=== PATIENT | male | born 1950 | race Caucasian/White ===

== ENCOUNTER 2018-03-03 20:48 | Inpatient (IN) ==
[2018-03-03 21:20] LABS: Basophils % 0.5 %; Eosinophils # 0.1 K/mcL (0.0-0.6); Eosinophils % 2.3 %; Hematocrit 45.3 % (37.5-50.1); Hemoglobin 15.5 g/dL (12.9-16.9); Immature Granulocytes % 0.8 % (0-4); Lymphocytes # 1.5 K/mcL (0.6-4.6); Lymphocytes % 25.3 %; Mean Corpuscular HGB Conc 34.2 g/dL (31.6-35.5); Mean Corpuscular Hemoglobin 33.5 pg (28.0-33.3); Mean Corpuscular Volume 97.8 fL (83.0-100.0); Mean Platelet Volume 9.1 fL (9.4-12.4); Monocytes # 0.8 K/mcL (0.0-1.3); Monocytes % 12.7 %; Neutrophils # 3.5 K/mcL (1.6-8.9); Platelet Count 199 K/mcL (140-400); Red Blood Count 4.63 M/mcL (4.19-5.50); Red Cell Distribution Width 12.9 % (11.5-14.5); Segmented Neutrophils % 58.4 %
[2018-03-03 21:28] LABS: Prothrombin Time 10.9 Seconds (9.4-12.1)
[2018-03-03 21:30] LABS: Activated Partial Thrombo Time 33.6 Seconds (26.0-36.0)
[2018-03-03 21:41] LABS: BUN/Creatinine Ratio 9 (6-26); Blood Urea Nitrogen 7 mg/dL (8-23); Calcium 9.7 mg/dL (8.6-10.3); Carbon Dioxide 24 mEq/L (23-29); Chloride 101 mEq/L (98-107); Glucose 101 mg/dL (70-105); Osmolality,Calculated 276 (280-300); Potassium 3.9 mEq/L (3.5-5.1); Sodium 134 mEq/L (136-145); Troponin I < 0.03 ng/mL (< 0.04); eGFR For African Americans > 60 (> 60); eGFR For Non-African Americans > 60 (> 60)
[2018-03-03 21:54] LABS: Thyroid Stimulating Hormone 3.693 mcIU/mL (0.340-5.600)
[2018-03-03] MEDS ORDERED: Aspirin 81 MG TAB.CHEW PO ONE (22:21)
--- NOTE | 2018-03-03 22:22 | Emergency Department Note ---
Disposition Clinical Impression: Chest pain Qualifiers: Chest pain type: unspecified Qualified Code(s): R07.9 - Chest pain, unspecified Disposition: Admitted As Inpatient Condition: Good General Adult HPI - General Chief complaint: ED Arrhythmia/Palpitations Stated complaint: "Heart Palpitations/Hx of Heart Attack" Source: patient, family Limitations: no limitations Nursing Notes Reviewed: Yes Vital Signs Reviewed: Yes - History of Present Illness HPI Narrative: Patient presents today for evaluation of chest pain. Patient's chest pain started just prior to arrival. Describes palpitations. Patient states that he had associated diaphoresis as well as nausea and left hand tingling. Patient describes his chest pain and palpitations as an arrhythmia. Patient does not have any history of atrial fibrillation however he does describe this as similar to his previous heart attack that did cause him to go and cardiac arrest as well as be life flighted to [place] for further intervention. Patient received 2 cardiac stents. This happened approximately 19 years ago. Patient has had multiple cardiac evaluations since then and has not been found to have any further cardiac disease. Most recent cardiac evaluation was earlier this year. He does take aspirin on a daily basis. He did not receive any aspirin or nitroglycerin prior to arrival. On my evaluation the patient was symptom-free. Patient will likely be admitted for further evaluation. Pain Scale: 0 - Related Data Home Medications Medication Instructions Recorded Confirmed Aspirin Enteric Coated [Aspirin EC] 81 mg PO DAILY 03/03/18 03/03/18 Atenolol [Tenormin] 50 mg PO DAILY 03/03/18 03/03/18 Atorvastatin Calcium [Lipitor] 80 mg PO HS 03/03/18 03/03/18 Cilostazol [Pletal] 100 mg PO BID 03/03/18 03/03/18 Ezetimibe [Ezetimibe] 10 mg PO DAILY 03/03/18 03/03/18 Lisinopril [Zestril] 20 mg PO DAILY 03/03/18 03/03/18 Ranitidine HCl [Acid Health Spa Manager] 150 mg PO DAILY 03/03/18 03/03/18 Allergies Allergy/AdvReac Type Severity Reaction Status Date / Time clindamycin Allergy Hives Verified 03/03/18 22:04 clopidogrel [From Plavix] Allergy Hives Verified 03/03/18 22:04 Penicillins [PCN] Allergy Rash Verified 03/03/18 22:04 Review of Systems: CONSTITUTIONAL: Diaphoresis No weight loss, fever, chills, weakness or fatigue. HEENT: Eyes: No visual changes. Ears, Nose, Throat: No hearing loss, difficulty talking or unable to swallow. SKIN: No rash or itching. CARDIOVASCULAR: No chest pain, chest pressure or chest discomfort. No palpitations or edema. RESPIRATORY: No shortness of breath, cough or sputum. GASTROINTESTINAL: Nausea No anorexia, vomiting or diarrhea. No abdominal pain or blood. GENITOURINARY: No burning on urination or hematuria. NEUROLOGICAL: Paresthesias to left hand No headache, dizziness, syncope, paralysis, ataxia. No change in bowel or bladder control. MUSCULOSKELETAL: No muscle pain, back pain, joint pain or stiffness. Past Medical History - Past Medical History Medical history: Reports: hypertension, myocardial infarction Surgical history: Reports: orthopedic, other (knee replacement 2016) Psychiatric history: Reports: no psych history - Social History Smoking Status: Never smoker Smokeless Tobacco Status: No Alcohol use: Reports: occasionally Drug use: Reports: none Physical Exam General: Well appearing, nontoxic, no acute distress Head: Normocephalic Atraumatic Eyes: PERRL, EOMI ENT: Airway patent, no stridor Neck: supple, no meningismus Chest: Lungs clear to auscultation bilateral Cardiac: Regular rate and rhythm, Abdomen: soft, nontender, nondistended; no guarding, rebound, or tenderness to percussion Musculoskeletal: Calves symmetric, nontender, no palpable cord Skin: No rash, normal skin tone Neuro: Awake alert and oriented - General Limitations: no limitations General appearance: alert, in no apparent distress Course - Reevaluation(s) Reevaluation #1: Patient with concerning chest pain features including that similar to previous SC. EKG with T-wave inversion in 2 and 3. Initial troponin negative.. Chest x -ray with no acute findings. Patient will be admitted for further cardiac evaluation. - Consultations Consultation #1: Discussed with hospitalist. Patient accepted for admission. Vital Signs Temperature 97.6 F 03/03/18 20:53 Pulse Rate 82 03/03/18 20:53 Respiratory Rate 16 03/03/18 20:53 Blood Pressure 150/76 03/03/18 20:53 O2 Sat by Pulse Oximetry 93 03/03/18 20:53 Temperature 97.6 F 03/03/18 20:53 Pulse Rate 82 03/03/18 20:53 Respiratory Rate 16 03/03/18 20:53 Blood Pressure 150/76 03/03/18 20:53 O2 Sat by Pulse Oximetry 93 03/03/18 20:53 Oxygen Delivery Oxygen Delivery Room Air Medical Decision Making - Medical Records Medical records reviewed: Yes I reviewed the patient's medical records. - Lab Data Lab results reviewed: Yes I reviewed the patient's lab results. Result diagrams: 03/03/18 21:06 03/03/18 21:06 Lab Results 03/03/18 03/03/18 03/03/18 Range/Units 21:06 21:06 21:06 WBC 6.0 (4.3-11.1) K/mcL RBC 4.63 (4.19-5.50) M/mcL Hgb 15.5 (12.9-16.9) g/dL Hct 45.3 (37.5-50.1) % MCV 97.8 (83.0-100.0) fL MCH 33.5 H (28.0-33.3) pg MCHC 34.2 (31.6-35.5) g/dL RDW 12.9 (11.5-14.5) % Plt Count 199 (140-400) K/mcL MPV 9.1 L (9.4-12.4) fL Immature Gran % 0.8 (0-4) % Seg Neutrophils % 58.4 % Lymphocytes % 25.3 % Monocytes % 12.7 % Eosinophils % 2.3 % Basophils % 0.5 % Neutrophils # 3.5 (1.6-8.9) K/mcL Lymphocytes # 1.5 (0.6-4.6) K/mcL Monocytes # 0.8 (0.0-1.3) K/mcL Eosinophils # 0.1 (0.0-0.6) K/mcL Basophils # 0.0 (0.0-0.2) K/mcL PT 10.9 (9.4-12.1) Seconds INR 1.0 APTT 33.6 (26.0-36.0) Seconds Sodium 134 L (136-145) mEq/L Potassium 3.9 (3.5-5.1) mEq/L Chloride 101 (98-107) mEq/L Carbon Dioxide 24 (23-29) mEq/L BUN 7 L (8-23) mg/dL Creatinine 0.82 (0.70-1.30) mg/dL Est GFR ( Amer) > 60 (> 60) Est GFR (Non-Af Amer) > 60 (> 60) BUN/Creatinine Ratio 9 (6-26) Glucose 101 (70-105) mg/dL Calculated Osmolality 276 L (280-300) Calcium 9.7 (8.6-10.3) mg/dL Troponin I < 0.03 (< 0.04) ng/mL TSH 3.693 (0.340-5.600) mcIU/mL - Radiology Data Radiology results reviewed: Yes I reviewed the patient's radiology results. - EKG Data EKG #1 EKG attestation: Yes I reviewed and interpreted this EKG. EKG results narrative: EKG shows sinus rhythm with sinus arrhythmia. Ventricular rate of 84. NH interval 132. QRS 104. QTC 405. Patient has no significant ST elevations or depressions. Patient does have inverted T waves in the inferior leads which have mildly changed from previous EKG of 06/14/2014.
--- NOTE | 2018-03-03 23:23 | Internal Med History&Physical ---
Date of Encounter: 03/03/18 Time of Encounter: 23:16 Internal Medicine - H&P: HPI Chief complaint: Palpitation, chest pain Admitted From: Emergency Dept Plans for Post Hospital Care: Home History of present illness: Mr. Lance is a 67 year old male Patient with history of CAD status post 2 stent 19 years ago at [facility], hypertension, hyperlipidemia was brought to ER by his for the evaluation of chest pain. Patient is states that around 6 PM tonight while watching TV he started to have palpitation, tingling and setting in both pound, some chest pressure in midsternal area , ringing in the ER. Initially he tried to ignore but made him concern with persistent symptoms therefore decided to bring patient ER. All the symptoms got resolved before seen by ER physician but is still baby aspirin was given but no nitroglycerin was given. Initial troponin negative, EKG mild T-wave inversion in lead 3 and aVF compared with previous EKG in May 2014. 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 ER physician called on-call hospitalists for the admission and further cardiac evaluation as patient has multiple risk factor. During my evaluation patient was symptoms free. Patient had similar symptoms to his previous heart attack that did cause him to go into cardiac arrest and was life flighted to [place] for further intervention where he did received 2 cardiac stent. Patient denies fever chills nausea vomiting headache dizziness chest pain shortness of breath cough abdominal pain urinary or bowel complaint Past Med Surg Social Fam HX - Past Medical History Medical history: hypertension, myocardial infarction Psychiatric history: no psych history - Past Surgical History Surgical History: orthopedic, other (knee replacement 2016) Additional surgical history: stent in leg and heart - Social History Smoking Status: Never smoker Smokeless Tobacco Status: No Alcohol use: occasionally Drug use: none Internal Medicine - H&P: Meds Aspirin Enteric Coated [Aspirin EC] 81 mg PO DAILY 03/03/18 [History] Atenolol [Tenormin] 50 mg PO DAILY 03/03/18 [History] Atorvastatin Calcium [Lipitor] 80 mg PO HS 03/03/18 [History] Cilostazol [Pletal] 100 mg PO BID 03/03/18 [History] Ezetimibe [Ezetimibe] 10 mg PO DAILY 03/03/18 [History] Lisinopril [Zestril] 20 mg PO DAILY 03/03/18 [History] Ranitidine HCl [Acid Wood Crew Supervisor] 150 mg PO DAILY 03/03/18 [History] 3 Allergy/AdvReac Type Severity Reaction Status Date / Time clindamycin Allergy Hives Verified 03/03/18 22:04 clopidogrel [From Plavix] Allergy Hives Verified 03/03/18 22:04 Penicillins [PCN] Allergy Rash Verified 03/03/18 22:04 All Systems PM: A 10-system review of systems was performed and is negative for pertinent findings except as documented above in the HPI. - Constitutional Vitals: Temp Pulse Resp BP Pulse Ox 97.6 F 85 16 130/68 97 03/03/18 20:53 03/03/18 23:08 03/03/18 23:08 03/03/18 23:08 03/03/18 23:08 Exam: General appearance: No acute distress, A&O X 3, at bedside Head exam: Atraumatic Eye exam: EOMI, PERRLA ENT exam: Moist oral mucosa Neck nontender, supple Respiratory exam: Clear to auscultation bilaterally Cardiovascular exam: Regular rate and rhythm, no systolic murmur Abdominal exam: Soft, nontender, nondistended, positive bowel sounds Extremities exam: No calf tenderness, no pedal edema Present: Skin-no rash, warm, dry, intact Neurological exam: Alert, awake, oriented 3, CN II-XII intact, no focal deficits. No facial droop. Normal speech. Normal gait. Internal Med - H&P Results - Labs CBC & Chem 7: 03/03/18 21:06 03/03/18 21:06 - Assessment and plan (1) ACS (acute coronary syndrome) Current Visit: Yes Status: Acute Assessment and plan: History of CAD with 2 stents in the past. Atypical chest pain but had angina equivalent symptoms and also similar symptom in the past when he had heart attack and multiple risk factors. At present patient is symptom-free, initial troponin negative, EKG slight T-wave inversion in lead 3 and aVF. Will admit patient on telemetry bed, serial troponin, repeat EKG with next troponin to see if any changes, continue aspirin, statin, beta martha, nitroglycerin as needed. Anticoagulation therapeutic dose will be considered if symptoms reappear, troponin positive or any change in EKG. Echocardiogram in the morning. Cardiology consultation to decide further cardiac workup -stress test versus heart catheter. (2) Hypertension Current Visit: Yes Status: Acute Assessment and plan: Close monitoring. Continue home medicine. Qualifiers: Hypertension type: essential hypertension Qualified Code(s): I10 - Essential (primary) hypertension (3) Hyperlipidemia Current Visit: Yes Status: Acute Assessment and plan: Fasting lipid profile. Continue statin Qualifiers: Hyperlipidemia type: unspecified Qualified Code(s): E78.5 - Hyperlipidemia , unspecified (4) DVT prophylaxis Current Visit: Yes Status: Acute Assessment and plan: SCDs, heparin - Time Spent With Patient Total time spent is greater than 50% in coordination of care (as documented) at patient's floor/unit and/or counseling patient: 25 - 35 minutes
[2018-03-03] MEDS ORDERED: Nitroglycerin 0.4 MG TAB.SUBL SL PRN (23:27)
[2018-03-03] MEDS ORDERED: Naloxone 0.4 MG/ML INJ IVP PRN (23:27)
[2018-03-04 01:01] LABS: Basophils % 0.5 %; Eosinophils # 0.1 K/mcL (0.0-0.6); Eosinophils % 2.2 %; Hematocrit 42.9 % (37.5-50.1); Hemoglobin 14.8 g/dL (12.9-16.9); Immature Granulocytes % 0.7 % (0-4); Lymphocytes # 1.1 K/mcL (0.6-4.6); Lymphocytes % 19.2 %; Mean Corpuscular HGB Conc 34.5 g/dL (31.6-35.5); Mean Corpuscular Hemoglobin 33.9 pg (28.0-33.3); Mean Corpuscular Volume 98.4 fL (83.0-100.0); Mean Platelet Volume 9.2 fL (9.4-12.4); Monocytes # 0.5 K/mcL (0.0-1.3); Monocytes % 9.5 %; Neutrophils # 3.8 K/mcL (1.6-8.9); Platelet Count 198 K/mcL (140-400); Red Blood Count 4.36 M/mcL (4.19-5.50); Red Cell Distribution Width 12.9 % (11.5-14.5); Segmented Neutrophils % 67.9 %
[2018-03-04 01:21] LABS: BUN/Creatinine Ratio 10 (6-26); Blood Urea Nitrogen 8 mg/dL (8-23); Calcium 9.4 mg/dL (8.6-10.3); Carbon Dioxide 25 mEq/L (23-29); Chloride 103 mEq/L (98-107); Chol/HDL Ratio 2.1 (0-4.9); Cholesterol 116 mg/dL (< 200); Glucose 113 mg/dL (70-105); HDL Cholesterol 56 mg/dL (40-59); LDL Cholesterol,Calculated 40 mg/dL (0-99); Osmolality,Calculated 279 (280-300); Potassium 4.3 mEq/L (3.5-5.1); Sodium 135 mEq/L (136-145); Triglycerides 99 mg/dL (< 150); eGFR For African Americans > 60 (> 60); eGFR For Non-African Americans > 60 (> 60)
[2018-03-04] MEDS ORDERED: *HR* Heparin 5,000 UNIT/ML VIAL SQ SCH (06:00)
[2018-03-04] MEDS ORDERED: *HR* Heparin 5,000 UNIT/ML VIAL IVP ONE (06:04)
[2018-03-04] MEDS ORDERED: *HR* Heparin 5,000 UNIT/ML VIAL IVP PRN (06:04)
[2018-03-04 06:28] LABS: Hematocrit 42.4 % (37.5-50.1); Hemoglobin 14.7 g/dL (12.9-16.9); Mean Corpuscular HGB Conc 34.7 g/dL (31.6-35.5); Mean Corpuscular Volume 98.1 fL (83.0-100.0); Mean Platelet Volume 9.2 fL (9.4-12.4); Platelet Count 182 K/mcL (140-400); Red Blood Count 4.32 M/mcL (4.19-5.50); Red Cell Distribution Width 12.8 % (11.5-14.5)
[2018-03-04 06:36] LABS: Prothrombin Time 11.3 Seconds (9.4-12.1)
[2018-03-04 06:38] LABS: Activated Partial Thrombo Time 33.9 Seconds (26.0-36.0)
[2018-03-04] MEDS: Heparin 25,000 UNIT/500 ML D5W 25,000 UNIT/500 ML BAG IVC SCH ×2 (07:50→18:26)
[2018-03-04] MEDS: Aspirin Enteric Coated 81 MG Tablet PO SCH (08:04)
[2018-03-04] MEDS: Lisinopril 20 MG TABLET PO SCH (08:04)
[2018-03-04] MEDS: Famotidine 20 MG TABLET PO SCH (08:05)
[2018-03-04] MEDS ORDERED: (Ezetimibe [Ezetimibe] 10 MG) PO SCH (09:00)
--- NOTE | 2018-03-04 11:23 | Cardiology Consult Note ---
<Ely Kumari - Last Filed: 03/04/18 11:19> Date of Encounter: 03/04/18 Time of Encounter: 10:00 Assessment and Plan (1) Unstable angina Current Visit: Yes Status: Acute Per cardiology: -Presented with his anginal symptoms at rest. -No acute ischemic ECG changes -ON asa, statin, BB. -Denies current symptoms. -TTE pending. -PLan for LHC today for unstable angina. Risks versus benefits of LHC explained to patient and family. Patient states understanding and agreeable to proceed. -Further recommendations pending LHC (2) Elevated troponin Current Visit: Yes Status: Acute Per cardiology: -Troponins negative x2, then 0.04. -Concerning anginal symptoms. -TTE pending. -ON heparin drip. -Plan for LHC today. -Cardiac rehab consult. Discussion w patient/family: The assessment and plan as outlined above was discussed with the patient and/or family members who expressed understanding and agreement. All questions were answered. Thank you for involving us in the care of your patient. Please call with any questions. Discussed and reviewed with . History of Present Illness Consult date: 03/03/18 Requesting physician: Felicia Garcia Consult reason: ACS Chief complaint: palpitations, "clammy" History of present illness: Mr. Lance is a 67 year old male with a relevant past medical history of CAD, IL s/p PCI, PAD, HTN, HLD, GERD who presented to [facility] with complaints of palpitations. Also reported "clamminess" and numbness, tingling in both arms. Patient states symptoms are similar to previous IL symptoms. Denies chest pain. Denies increased shortness of breath. Does report increased fatigue. Denies current palpitations or clamminess. Past Med Surg Social Fam HX - Past Medical History Attestation: Yes The following information was validated with the patient. Source: patient, old records reviewed, obtained from family Medical history: arthritis, COPD, coronary artery disease, GERD, hyperlipidemia , hypertension, myocardial infarction Psychiatric history: anxiety, depression - Past Surgical History Surgical History: angioplasty/stent, knee replacement, orthopedic, other Additional surgical history: stent in leg(4) and heart(2) - Social History Smoking Status: Former smoker Smokeless Tobacco Status: No Alcohol use: occasionally Drug use: none Medications and Allergies Aspirin Enteric Coated [Aspirin EC] 81 mg PO DAILY 03/03/18 [History] Atenolol [Tenormin] 50 mg PO DAILY 03/03/18 [History] Atorvastatin Calcium [Lipitor] 80 mg PO HS 03/03/18 [History] Cilostazol [Pletal] 100 mg PO BID 03/03/18 [History] Ezetimibe [Ezetimibe] 10 mg PO DAILY 03/03/18 [History] Lisinopril [Zestril] 20 mg PO DAILY 03/03/18 [History] Ranitidine HCl [Acid Fish Stringer Assembler] 150 mg PO DAILY 03/03/18 [History] 3 Allergy/AdvReac Type Severity Reaction Status Date / Time clindamycin Allergy Hives Verified 03/03/18 22:04 clopidogrel [From Plavix] Allergy Hives Verified 03/03/18 22:04 Penicillins [PCN] Allergy Rash Verified 03/03/18 22:04 All Systems Review: The remainder of the systems were reviewed and are negative - Constitutional Constitutional: fatigue - Cardiovascular Cardiovascular: as per HPI, diaphoresis, palpitations Physical Examination Vital Signs, Last 4 Hours Temp Pulse Resp BP Pulse Ox 03/04/18 08:26 96 03/04/18 08:04 98.2 F 66 18 155/82 95 General: Conversant, No Apparent Distress HEENT: Atraumatic, Normocephaly, Mucus Membranes Moist Neck: No JVD, Normal carotid pulses Cardiac: Reg Rate and Rhythm, Normal S1 and S2, No Murmur Lungs: Normal Breath Sounds, No Wheeze, Rales, Rhonchi Neuro: Alert and responsive, No focal deficits noted Abdomen: Soft, Non-Tender Skin: No rashes noted on visualized skin Musculoskeletal: No Chest Wall Tenderness Extremities: No Clubbing, No Cyanosis, No Edema, Normal Pulses Results 03/04/18 06:11 03/04/18 00:21 Lab Results Impressions Chest X-Ray 03/03/18 20:58 IMPRESSION: No acute process. D/ / Hussein Goins MD / Hussein Goins MD Interpreting Provider: Hussein Goins MD Active Medications Aspirin (Aspirin Ec) 81 mg PO DAILY [facility] Stop: 09/03/18 09:01 Last Admin: 03/04/18 08:04 Dose: 81 mg Atenolol (Tenormin) 50 mg PO DAILY [facility] Stop: 09/03/18 09:01 Last Admin: 03/04/18 08:04 Dose: 50 mg Atorvastatin Calcium (Lipitor) 80 mg PO HS [facility] Stop: 09/03/18 21:01 Cilostazol (Pletal) 100 mg PO BID [facility] Stop: 09/03/18 09:01 Last Admin: 03/04/18 08:04 Dose: 100 mg Famotidine (Pepcid) 20 mg PO DAILY [facility] Stop: 09/03/18 09:01 Last Admin: 03/04/18 08:05 Dose: 20 mg Heparin Sodium (Porcine) (Heparin) 4,000 unit IVP Q6HR PRN PRN Reason: SEE COMMENTS Stop: 09/03/18 06:05 Heparin Sodium (Porcine) (Heparin) 2,000 unit IVP Q6H PRN PRN Reason: SEE COMMENTS Stop: 09/03/18 06:05 Heparin Sodium/Dextrose (Heparin 25,000 Unit/500 Ml D5w) 25,000 unit in 500 mls @ 19.861 mls/hr IVC .Q24H [facility]; 9.8 UNIT/KG/HR PRN Reason: Protocol Stop: 09/03/18 06:16 Last Admin: 03/04/18 07:50 Dose: 9.8 unit/kg/hr, 19.861 mls/hr Lisinopril (Zestril) 20 mg PO DAILY [facility] PRN Reason: Protocol Stop: 09/03/18 09:01 Last Admin: 03/04/18 08:04 Dose: 20 mg Naloxone HCl (Narcan) 0.4 mg IVP Q2MIN PRN PRN Reason: SEE COMMENTS Stop: 09/02/18 23:28 Nitroglycerin (Nitroglycerin) 0.4 mg SL Q5MIN PRN PRN Reason: Chest Pain Stop: 09/02/18 23:28 Laboratory Tests 03/03/18 03/04/18 03/04/18 21:06 00:21 00:21 Hgb 14.8 Creatinine Troponin I < 0.03 < 0.03 03/04/18 03/04/18 00:21 05:08 Hgb Creatinine 0.83 Troponin I 0.04 H* - Imaging and Cardiology Chest Xray: report reviewed Echo: pending - EKG Interpretation EKG results cardiology: personally reviewed (ECG with SR, HR 84.), other ( Telemetry reviewed with average HR previous 12 hours noted to be 63, SR. PVCs and PACs noted.) Consult Discharge Plan - Plan Referrals: Marely Alcaraz, DO [Primary Care Provider] - <HobbsSubhash Mu - Last Filed: 03/04/18 11:46> Date of Encounter: 03/04/18 - Attending Attestation I have personally performed a face to face evaluation on this patient. I have reviewed and agree with the care plan. History and Exam by me shows: CC: Palpitations, clammy Pt reports had sudden onset of palpitations, feeling clammy, occurred at rest, not associated with chest pain or pressure, lasted approx 20 minutes before resolved spontaneously. Pt reports these symptoms are the same as his initial symptoms of ACS before IL in 2005. He came to ER after symptoms resolved, have not reoccurred. He is active, most strenuous activity is playing golf, which has not provoked similar symptoms. He is currently asmptomatic. PMH; reviewed ROS: reviewed PE; pt seen and examined, agree with findings as documented. \\ IMP/Plan: 1. ACS - presenting symptoms same as previous anginal equivalent, recommend LHC/ Poss, risks and benefits discussed with he and his , including stroke, bleeding, renal injury, IL and , both express understanding and request to proceed with LHC/poss. 2. Elevated troponin: minimal elevation on third troponin, unclear significance , however rec: proceed with LHC 3. Hypertension: adequate control on current meds., continue same 4. Hyperlipidemia: on statin, fasting lipid profile pending 5. Osteoartihtis: post right knee replacement. 6. Morbid obesity, discussed lifestyle changes, will review weight loss goals before discharge. 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 Assessment and Plan Discussion w patient/family: The assessment and plan as outlined above was discussed with the patient and/or family members who expressed understanding and agreement. All questions were answered. Thank you for involving us in the care of your patient. Please call with any questions. History of Present Illness History of present illness: Mr. Lance is a 67 year old male All Systems Review: The remainder of the systems were reviewed and are negative Physical Examination Vital Signs, Last 4 Hours Temp Pulse Resp BP Pulse Ox 03/04/18 08:26 96 03/04/18 08:04 98.2 F 66 18 155/82 95 Results 03/04/18 06:11 03/04/18 00:21 Lab Results 03/04/18 03/04/18 03/04/18 00:21 00:21 00:21 WBC 5.6 Hgb 14.8 Hct 42.9 Plt Count 198 INR APTT Sodium 135 L Potassium 4.3 Chloride 103 Carbon Dioxide 25 BUN 8 Creatinine 0.83 Glucose 113 H Calcium 9.4 Troponin I < 0.03 03/04/18 03/04/18 03/04/18 05:08 06:11 06:11 WBC 4.4 Hgb 14.7 Hct 42.4 Plt Count 182 INR 1.0 APTT 33.9 Sodium Potassium Chloride Carbon Dioxide BUN Creatinine Glucose Calcium Troponin I 0.04 H*
[2018-03-04] MEDS ORDERED: Heparin 1,000 UNITS/500 mL 500 ML ONE (14:19)
[2018-03-04] MEDS ORDERED: Verapamil 5 MG/2 ML VIAL ONE (14:19)
[2018-03-04] MEDS ORDERED: *HR* Heparin 10,000 UNIT/10 ML VIAL ONE (14:19)
[2018-03-04] MEDS ORDERED: 0.9 % Sodium Chloride 1,000 ML ONE ×2 (14:19→14:59)
[2018-03-04] MEDS ORDERED: Nitroglycerin 1,000 MCG/10 ML VIAL IV ONE (14:19)
[2018-03-04] MEDS ORDERED: ISOVUE-370 200 ML INFUS..BTL IV ONE ×2 (14:19→15:47)
[2018-03-04] MEDS ORDERED: *HR* FentaNYL (PF) 100 MCG/2 ML VIAL ONE (14:59)
[2018-03-04] MEDS ORDERED: *HR* Midazolam HCl 2 MG/2 ML VIAL ONE (14:59)
--- NOTE | 2018-03-04 15:08 | Pre-Sedation Evaluation ---
Pre-sedation evaluation - Pre-sedation checklist Date of procedure: 03/04/18 Procedure: [facility] Recent Vitals: Last Vital Signs Temp 98.6 F 03/04/18 11:44 Pulse 60 03/04/18 11:44 Resp 17 03/04/18 11:44 BP 153/86 03/04/18 11:44 Pulse Ox 95 03/04/18 11:44 H&P (including ROS) documented in medical record: Yes Previous reaction to sedatives/anesthetics: No Dietary Status: NPO after Midnight Airway Assessment: Patient can open mouth completely, TMJ function normal Dentition: No loose teeth or bridges ASA Classification *see protocol: CLASS II-Mild systemic disease Plan of Care: Pt appropriate candidate for procedure/moderate/conscious sedation Cardiac Registry (Cardio Only) - Functional Capacity Functional Capacity: >=4 METS with symptoms - Clincal Frailty Scale Clinical Frailty Scale: Managing Well
--- NOTE | 2018-03-04 16:26 | Invasive Diagnostic Lab Proc ---
Name: Andrea Lance Date of Study: 03/04/2018 Date: 1950 Ht: 68.9in Medical Record#: [id number] Age: 67 Wt: 222.45lb Gender: Male BSA: 2.16 Order #: [id number] BMI: 32.95 Physicians Procedure Physician: Yvon Agustin MD, [facility] Referring MD: Referring MD: Staff Name Position Time In [facility] RT (R) Scrub 03:06 PM Indications Indication Unstable Angina Procedures Performed Procedure L HRT ARTERY/VENTRICLE ANGIO IVUS CORONARY 1ST VESSEL S&I Pre-Procedure Checklist Informed consent is complete signed and on chart. H&P is on chart. ID band is on and ID verified with patient. Patient NPO for procedure The procedure was described for the patient and questions were answered. Blood Pressure: 125/81 ECG is on chart. Rhythm: NSR Plan of Care Patient will tolerate the procedure without complications. Adequate level of comfort will be maintained. Hemodynamics will remain stable Patient will recover from procedure without complications. Respiratory function will be maintained. Cardiac rhythm will remain stable. Patient temperature will be maintained. Patient and/or family have verbalized understanding of the procedure. Patient Education Chief Complaint/Reason for Test: Cardiac Cath Developmental Category: Geriatric (65+ years) Developmentally Appropriate for Age: Yes Learning Barriers: None Education Needs: Procedure Education Method: Verbal Information Taught: Cardiac Cath Educational Evaluation: Able to repeat information Intravenous Access Time IV Size Location DC'd Fluid/Drip Rate Units RN 20g 1 /" Patent On Arrival Rt Antecubital 0.9NaCl ml/hr Allergies clindamycin PCN Penicillins Penicillin clopidogrel Vital Signs Time BP (mmHg) HR (bpm) O2 Sat. RR (bpm) LOC 03:07 PM 125 / 81 62 96 % 4 = Oriented but drowsy 03:07 PM 152 / 83 58 97 % 03:11 PM 125 / 81 66 97 % 03:16 PM 130 / 76 63 96 % 03:21 PM 117 / 82 57 95 % 03:26 PM 122 / 76 72 95 % 03:31 PM 124 / 75 71 95 % 03:36 PM 122 / 72 68 95 % 03:41 PM 131 / 81 63 95 % 03:46 PM 119 / 77 67 95 % 03:51 PM 123 / 76 61 95 % 03:56 PM 133 / 86 61 95 % Procedural Medications Time Medication Dose Units Method Given By 03:06 PM Oxygen 2 L/min nasal cannula Lisa Valladares RN 03:06 PM Versed 2 mg Intravenous Lisa Valladares RN 03:07 PM Fentanyl 50 mcg Intravenous Lisa Valladares RN 03:24 PM Lidocaine 2% 0.5 ml Subcutaneous Yvon Agustin MD, [facility] 03:24 PM Heparin 2000 units Nitroglycerin 200 mcg Verapamil 2.5 mg Intraarterial Yvon Agustin MD, FAC 03:41 PM Nitroglycerin 200 mcg Intracoronary Yvon Agustin MD 03:49 PM Heparin 3000 units Intravenous Lisa Valladares RN ASA Classification: CLASS II- Mild systemic disease (i.e. well-controlled diabetes, hypertension, asthma, cigarette smoking) Elise Score Preprocedure Postprocedure Activity 2- Moves 4 extremities sustained head lift Activity 2- Moves 4 extremities sustained head lift Circulation 2- SBP +/= 20 points of pre-anesthetic level Circulation 2- SBP +/= 20 points of pre-anesthetic level Consciousness 2- Awake and alert oriented x 3 Consciousness 2- Awake and alert oriented x 3 O2 Saturation 2- Able to maintain O2 satruation of 92% on room air O2 Saturation 2- Able to maintain O2 satruation of 92% on room air Respiratory 2- Able to deep breathe and cough well Respiratory 2- Able to deep breathe and cough well Total Score 10 Total Score 10 Contrast Agent: Isovue Diagnostic Contrast: 83 ml Total Contrast: 83 ml Fluoro Dose: 50 mGy Activated Clotting Time Time Seconds to Clot 03:46 PM 225 Procedure Log Time Note Enter By 03:05 PM CathStat 03:05 PM Vitals capture started with the following parameters, Patient=Adult, Interval=5 min, Initial Yeicwjfu=482 mmHg, Deflation Rate=3 mmHg, Cuff placed on Right Arm 03:06 PM Pt arrived to laboratory aide 1 at 15:06 scoates 03:06 PM Margarita Lr (R) Position: Scrub Time in: 15:06 scoates 03:06 PM Patient charges- Angio tray pack, Navilyst 3mm J, Pulse Oximetry and ACIST tubing and transducer scoates 03:06 PM Case Delayed No scoates 03:06 PM Hair removed from procedure site in holding area using clippers. Right wrist prepped with Chloraprep by Margarita Lr (R), then patient was draped. Skin intact. scoates 03:06 PM Hair removed from procedure site in holding area using clippers. Right groin prepped with Chloraprep by Margarita Lr (R), then patient was draped. Skin intact. scoates 03:06 PM Physican paged/called 15:06. scoates 03:06 PM Physician arrived 15:06 scoates 03:06 PM ASA Class CLASS II- Mild systemic disease (i.e. well-controlled diabetes, hypertension, asthma, cigarette smoking) scoates 03:06 PM Meet and greet completed scoates 03:06 PM Sign in performed according to hospital policy. scoates 03:06 PM Procedure start 15:06 scoates 03:06 PM Time: 15:06 Oxygen on at 2 L/min per nasal cannula by Lisa Valladares RN scoates 03:06 PM Time: 15:06 Versed 2 mg Intravenous Given by Lisa Valladares RN scoates 03:07 PM Time: 15:07 Fentanyl 50 mcg Intravenous Given by Lisa Valladares RN scoates 03:07 PM Time: 15:07 Patient comfortable and pain free: Yes scoates 03:07 PM Time: 15:07LOC: 4 = Oriented but drowsy scoates 03:07 PM Recorded ECG: HR=60 Condition=Condition 1 03:07 PM HR=58 bpm, FQKR=270/83 mmhg, SpO2=97.0 %, Comment=NSR 03:11 PM HR=66 bpm, AZNU=757/81 mmhg, SpO2=97.0 %, Comment=NSR 03:14 PM Pressure channel 1 zeroed. 03:16 PM HR=63 bpm, AFNR=540/76 mmhg, SpO2=96.0 %, Comment=NSR 03:21 PM HR=57 bpm, YIUN=092/82 mmhg, SpO2=95.0 %, Comment=NSR 03:23 PM Time out performed according to hospital policy [email or web address] 03:24 PM Time: 15:24 0.5 ml Lidocaine 2% to right radial Subcutaneous Given by Yvon Agustin MD, [facility] [email or web address] 03:24 PM Access obtained by percutaneous puncture. 6Fr 10cm Terumo [place] sheath placed in right Radial artery. [id number] [email or web address] 03:24 PM Time: 15:24 Patient given 2,000 units Heparin, 200 mcg Nitroglycerin, and 2.5 mg Verapamil Intraarterial by Yvon Agustin MD, [facility]. This is given to reduce risk of vessel spasm and thrombosis. [email or web address] 03:24 PM 0.035 260cm Navilyst 3mmJ wire [id number] [email or web address] 03:24 PM 5Fr TIG catheter inserted over the wire [facility] [email or web address] 03:26 PM Pressure channel 1 zeroed. 03:26 PM HR=72 bpm, BLYJ=680/76 mmhg, SpO2=95.0 %, Comment=NSR 03:26 PM Recorded Pressure: LV, HR=72, Condition=Condition 1 (Left Ventricle) LV 120/8/18 03:26 PM Catheter selectively placed in left ventricle [email or web address] 03:26 PM Bolus angiogram of left Ventricle complete: 8 ml/sec for a total of 24 mls [email or web address] 03:27 PM Recorded Pressure: LV, Ao, HR=71, Condition=Condition 1 (Left Ventricle) LV 110/3/10, (Aorta) Ao 118/34/74 03:28 PM LCA angiography performed in multiple views. [email or web address] 03:28 PM Recorded Pressure: Ao, HR=71, Condition=Condition 1 (Aorta) Ao 112/82/96 03:29 PM Recorded Pressure: Ao, HR=70, Condition=Condition 1 (Aorta) Ao 116/83/98 03:30 PM RCA angiography performed in multiple views. [email or web address] 03:30 PM Recorded Pressure: Ao, HR=71, Condition=Condition 1 (Aorta) Ao 118/84/100 03:31 PM Lesion found in Mid RCA. Pre Stenosis: 99 Pre NASIMA Flow: 1: Slow Penetration without Perfusion [email or web address] 03:31 PM HR=71 bpm, SUFE=709/75 mmhg, SpO2=95.0 %, Comment=NSR 03:32 PM Lesion found in Mid LMCA. Pre Stenosis: 95 Pre NASIMA Flow: 3: Complete and Brisk Flow/Perfusion [email or web address] 03:32 PM Catheter removed [email or web address] 03:32 PM 5Fr FL 3.5 catheter inserted over the wire [id number] [email or web address] 03:33 PM LCA angiography performed in multiple views. [email or web address] 03:33 PM Lesion found in Proximal Circumflex. Pre Stenosis: 50 Pre NASIMA Flow: 3: Complete and Brisk Flow/Perfusion [email or web address] 03:34 PM Recorded Pressure: Ao, HR=69, Condition=Condition 1 (Aorta) Ao 121/83/101 03:34 PM Catheter removed [email or web address] 03:36 PM HR=68 bpm, FBUM=103/72 mmhg, SpO2=95.0 %, Comment=NSR 03:37 PM Lesion found in Distal LMCA. Pre Stenosis: 40 Pre NASIMA Flow: 3: Complete and Brisk Flow/Perfusion [email or web address] 03:38 PM 6Fr RBL 3.5 Convey guide catheter was used to cannulate the PCI vessel successfully. reused? No [email or web address] 03:38 PM .014 [place] 180cm guide wire across target lesion- successful. reused? No [email or web address] 03:38 PM Inflation device was opened. [email or web address] 03:39 PM Coronary Dominance: right [email or web address] 03:40 PM 3.6Fr/40mHz [employer] IVUS catheter was inserted into guide catheter and advanced to lesion. IVUS study was done and the catheter was removed. [email or web address] 03:41 PM HR=63 bpm, XPNA=150/81 mmhg, SpO2=95.0 %, Comment=NSR 03:41 PM Time: 15:41 Nitroglycerin 200 mcg Intracoronary Given by Yvon Agustin MD [email or web address] 03:46 PM At 15:46 the ACT was 225 seconds. [email or web address] 03:46 PM HR=67 bpm, FGXC=460/77 mmhg, SpO2=95.0 %, Comment=NSR 03:48 PM Ivus tracing of Left main 6.03. [email or web address] 03:49 PM Time: 15:49 Heparin 3000 units Intravenous Given by Lisa Valladares RN [email or web address] 03:50 PM IVUS catheter removed intact [email or web address] 03:51 PM HR=61 bpm, HNYB=019/76 mmhg, SpO2=95.0 %, Comment=NSR 03:53 PM Guide catheter removed intact. [email or web address] 03:54 PM 5Fr FR 4 catheter inserted over the wire [facility] [email or web address] 03:54 PM RCA angiography performed in multiple views. [email or web address] 03:56 PM Catheter removed [email or web address] 03:56 PM HR=61 bpm, GRIO=291/86 mmhg, SpO2=95.0 %, Comment=NSR 03:57 PM Conversation between Interventionalist and CT Surgeon. [email or web address] 04:00 PM Procedure completed at 16:00 03/04/2018 [email or web address] 04:00 PM Did you address NASIMA flow and Dominance? Yes [email or web address] 04:00 PM Sign out completed: Radiation Dose 595.69 mGy, 49.7 mGy/cm2 Fluoro Time: 3 Isovue 370 - 200ml contrast 83 ml given by Yvon Agustin MD, [facility]. Complications: NoneCardiac Rehab Consult needed: YesConfirmed administered medications: Yes [email or web address] 04:00 PM Isovue 370 - 200ml,1 Bottle(s) used. [email or web address] 04:00 PM Arterial sheath pulled, Vasc Band closure device used and was Successful S/N. [email or web address] 04:00 PM 14 ml air in Vasc Band. [email or web address] 04:00 PM Estimated Blood Loss: minimal [email or web address] 04:00 PM Post ECG NSR [email or web address] 04:01 PM Post Blood Pressure 133/86 [email or web address] 04:01 PM 16:01 Post Pulses Rt Radial 1+ [email or web address] 04:01 PM Information taught Cardiac Cath and Vasc Band [email or web address] 04:01 PM Education needs Procedure, Plan of Care, and Disease Process [email or web address] 04:01 PM Learning barriers :None [email or web address] 04:01 PM Education Methods Verbal [email or web address] 04:01 PM Education evaluation Able to repeat information [email or web address] 04:01 PM Site status No bleeding/hematoma - Rt Wrist as reported by Sites, Margarita RT (R) at 16:01 [email or web address] 04:01 PM Delay to floor No [email or web address] 04:01 PM Patient out of room: 16:01 [email or web address] 04:01 PM Complications: None [email or web address] 04:02 PM Fluoro Time: 3 [email or web address] 04:02 PM Isovue 370 - 200ml contrast [address] agustin. [email or web address] 04:09 PM Report given to Krys WOODS Pt taken to 2A Room #26. 16:08 [email or web address] 04:17 PM Family placed in consult room. [email or web address] 04:17 PM Complications: None [email or web address] 04:17 PM Patient out of room: 16:17 [email or web address] Complications Complication None None None Hemodynamics Pressures Site Systolic/A Wave Diastolic/V Wave Mean LV 120 8 18 LV 110 3 10 AO 118 34 74 AO 112 82 96 AO 116 83 98 AO 118 84 100 AO 121 83 101 Post Procedure Information Blood Pressure: 133/86 mmHg Rhythm: NSR Post procedural instructions were given Surgery consult for CABG Closure Device Time Device Success/Fail 03/04/2018 4:02:00 PM Manual Compression Successful Site Checks Time Location Status Staff Sheath In? Note 04:01 PM Rt Wrist No bleeding/hematoma Sites, Margarita RT (R) Pulses Time Site Pre-Procedure Post-Procedure Note 03/04/2018 3:15:00 PM Bilateral DP & PT 2+ 03/04/2018 3:15:00 PM Bilateral radial None 4:01:00 PM Rt Radial 1+ Updated by Becca Sheehan, RT(R) on 03/04/2018 4:17:26 PM electronically signed on 03/04/2018 4:19:06 PM with status of Final
--- NOTE | 2018-03-04 17:40 | Electrocardiograph Report ---
[place] [id number] Test Date: 2018-03-03 Pat Name: Andrea Lanec Department: 103 Room: 2A26 Gender: M Oncology Consultant: : 1950 Requested By: Dwayne Nieto Order Number: [id number] Reading MD: Hussein El Measurements Intervals [place] Rate: 84 P: 11 IN: 132 QRS: 51 QRSD: 104 T: 11 QT: 364 QTc: 405 Interpretive Statements SINUS RHYTHM WITH SINUS ARRHYTHMIA Electronically Signed On 03-04-2018 17:39:00 EDT by Hussein El
--- NOTE | 2018-03-04 17:43 | Electrocardiograph Report ---
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
--- NOTE | 2018-03-04 17:45 | Internal Med Progress Note ---
Date of Encounter: 03/04/18 Time of Encounter: 10:30 - Assessment and plan (1) ACS (acute coronary syndrome) Current Visit: Yes Status: Acute Assessment and plan: Chest pain r/o NC. Troponin elevated at 0.04. Given history of CAD and stents 19 years prior, patient at higher risk. LHC by cardiology today, follow report and findings. c/w home meds (2) Hypertension Current Visit: Yes Status: Acute Assessment and plan: Close monitoring. Continue home medicine. Qualifiers: Hypertension type: essential hypertension Qualified Code(s): I10 - Essential (primary) hypertension (3) Hyperlipidemia Current Visit: Yes Status: Acute Assessment and plan: continue statins Qualifiers: Hyperlipidemia type: unspecified Qualified Code(s): E78.5 - Hyperlipidemia , unspecified - Time Spent With Patient Total time spent is greater than 50% in coordination of care (as documented) at patient's floor/unit and/or counseling patient: - Subjective Interval history: Reported feeling better this morning, chest pain had resolved in AM. No other complaints. - Constitutional Vitals: Temp Pulse Resp BP Pulse Ox 97.7 F 61 18 132/76 100 03/04/18 16:23 03/04/18 17:30 03/04/18 17:30 03/04/18 17:30 03/04/18 17:30 Exam: General: Alert and oriented Skin: Normal color, no rash, no lesions. HEENT: EOMI, pupils equal, round and reactive. Cardiovascular: Regular rate, regular rhythm. Lungs:Normal breath sounds, no wheezes or crackles. Abdomen:Soft, non-tender, no rigidity. Extremities:No deformity, no edema or tenderness, no joint swelling or clubbing. Neurological:Normal cognition, no weakness, no numbness. Rest of the physical exam is non contributory Internal Medicine: Result - Labs CBC & Chem 7: 03/04/18 06:11 03/04/18 00:21 Labs: Short CBC 03/04/18 03/04/18 Range/Units 00:21 06:11 WBC 5.6 4.4 (4.3-11.1) K/mcL Hgb 14.8 14.7 (12.9-16.9) g/dL Hct 42.9 42.4 (37.5-50.1) % Plt Count 198 182 (140-400) K/mcL Neutrophils # 3.8 (1.6-8.9) K/mcL BMP 03/04/18 00:21 Sodium 135 L Potassium 4.3 Chloride 103 Carbon Dioxide 25 BUN 8 Creatinine 0.83 Glucose 113 H Calcium 9.4 Cardiac Enzymes 03/04/18 03/04/18 Range/Units 00:21 05:08 Troponin I < 0.03 0.04 H* (< 0.04) ng/mL - ABG Interpretation ABG results: PT/INR, D-dimer PT 11.3 Seconds (9.4-12.1) 03/04/18 06:11 - Impressions Impressions Echocardiogram 03/04/18 07:00 Impressions: Technically sub-optimal due to poor echocardiographic windows. LVEF 60%. Not all segments were well visualized, but overall LVEF appears normal. Normal LV chamber size and wall thickness. Mild left ventricular diastolic dysfunction. Moderately dilated left atrium. Unable to estimate RVSP due to lack of TR jet. No significant valvular dysfunction. Left Ventricular Wall Motion: Rest Echo Findings All wall segments showed normal motion. Findings: Study Quality * Technically sub-optimal due to poor echocardiographic windows. ECG Findings * Normal sinus rhythm. Left Ventricle * LVEF 60%. * Normal LV chamber size and wall thickness. * Not all segments were well visualized, but overall LVEF appears normal * Mild left ventricular diastolic dysfunction. Left Atrium * Moderately dilated left atrium. Right Atrium * Mildly dilated right atrium. Right Ventricle * Normal right ventricular structure and function. Aortic Valve * Aortic valve not well visualized. * No aortic stenosis. * No aortic regurgitation. Mitral Valve * Normal mitral valve structure and function. * No mitral regurgitation. * No mitral stenosis. Tricuspid Valve * Tricuspid valve not well visualized. * No tricuspid regurgitation. * Unable to estimate RVSP due to lack of TR jet. Pulmonic Valve * Pulmonic valve not well visualized. Aorta * Normally sized aortic root. Pericardium * The pericardium appears normal. IVC * Normal IVC dimensions and inspiratory collapse. Pulmonary Artery * Normal visualized portions of the main pulmonary artery. - VTE Documentation of Mechanical Device: Intermittent pneumatic compression device Consult Discharge Plan - Plan Referrals: Marely Alcaraz DO [Primary Care Provider] -
--- NOTE | 2018-03-04 19:16 | Cardiothoracic Consult Note ---
Date of Encounter: 03/04/18 Time of Encounter: 19:11 Assessment and Plan (1) CAD (coronary artery disease) Current Visit: Yes Status: Acute The patient is a 67-year-old hypertensive man with hypercholesterolemia, known CAD, and known PAD. Yesterday, he experienced left precordial chest pain, diaphoresis, and palpitations which lasted for approximately 3 hours. He was eventually evaluated at [facility] emergency department if his 's insistence. He had mildly elevated troponin I levels and was admitted for further cardiac workup. A transthoracic echocardiogram revealed an LVEF 60% with normal left ventricular size and function. Subsequent cardiac catheterization however, revealed severe 3 vessel CAD and an LVEF 65%. In particular the patient has a 90% mid LAD lesion, a 60% proximal LCx lesion, and a subtotally occluded proximal RCA which fills distally via [id number] collaterals. He has been recommended for CABG. I concur with this recommendation. The STS risk calculator reveals an operative mortality risk 1.26%, deep sternal wound infection risk 0.57%, permanent stroke risk 0.90%, renal failure risk 1.74%, and reoperation risk 4.98%. The patient understands the procedure, benefits, alternatives, and risks, and gives his informed consent. The patient is tentatively scheduled for CABG on 03/07/2018. The assessment and plan as outlined above was discussed with the patient and/or family members who expressed understanding and agreement. All questions were answered. Qualifiers: Coronary Disease-Associated Artery/Lesion type: ruby artery [place] vs. transplanted heart: ruby heart Associated angina: with unstable angina Qualified Code(s): I25.110 - Atherosclerotic heart disease of ruby coronary artery with unstable angina pectoris - History of Present Illness Consult date: 03/04/18 Requesting physician: Yvon Agustin Consult reason: CABG evaluation Chief complaint: Substernal chest pain, diaphoresis History of present illness: Mr. Lance is a 67 year old hypertensive man with hypercholesterolemia and known CAD and known peripheral arterial disease. The patient's cardiac history dates back to 1998 when he suffered a myocardial infarction. The patient was transferred to the [facility] and underwent percutaneous catheter intervention and stent placement 2. 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 At that time the patient would have vague substernal chest discomfort, but denied any shortness of breath, dyspnea exertion, diaphoresis, nausea, vomiting, lightheadedness, or syncope. Yesterday; however, the patient had sudden onset of left precordial chest pain, diaphoresis, and palpitations. The symptoms lasted for approximately 3 hours and he eventually sought treatment at [facility] emergency department at the insistence of his . The patient had mildly elevated troponin I levels and was admitted for further cardiac workup given his known CAD, presenting symptoms, and cardiac risk profile. The patient underwent a transthoracic echocardiogram this afternoon and was found to have an LVEF 60% with normal left ventricular size and function. There were no valvular abnormalities noted. Subsequent cardiac catheterization revealed severe 3 vessel CAD and an LVEF 65%. In particular the patient has a 90% mid LAD lesion, a 60% proximal LCx lesion, and a subtotally occluded proximal RCA which fills distally via [id number]-ovmdr collaterals. He has been recommended for CABG. Past Med Surg Social Fam HX - Past Medical History Medical history: arthritis, COPD, coronary artery disease, GERD, hyperlipidemia , hypertension, myocardial infarction, peripheral artery disease Psychiatric history: anxiety, depression - Past Surgical History Surgical History: angioplasty/stent, cataract (Bilateral cataract excision with intraocular lens implantation), knee replacement (Right total knee replacement) , vascular surgery (Right lower extremity endovascular stent placement 4) Additional surgical history: stent in leg(4) and heart(2) - Social History Smoking Status: Former smoker Packs per day: 2PPD x 35YRS Smokeless Tobacco Status: No Alcohol use: occasionally Drug use: none Occupational status: retired Current living situation: Home - Independent Activity Level: Independent ambulation Recent Out of Country Travel Within the Last 8 Weeks: No Exposure or Possible Exposure to Illness During Travel: No Medications and Allergies Aspirin Enteric Coated [Aspirin EC] 81 mg PO DAILY 03/03/18 [History] Atenolol [Tenormin] 50 mg PO DAILY 03/03/18 [History] Atorvastatin Calcium [Lipitor] 80 mg PO HS 03/03/18 [History] Cilostazol [Pletal] 100 mg PO BID 03/03/18 [History] Ezetimibe [Ezetimibe] 10 mg PO DAILY 03/03/18 [History] Lisinopril [Zestril] 20 mg PO DAILY 03/03/18 [History] Ranitidine HCl [Acid Agricultural Lender] 150 mg PO DAILY 03/03/18 [History] 3 Allergy/AdvReac Type Severity Reaction Status Date / Time clindamycin Allergy Hives Verified 03/03/18 22:04 clopidogrel [From Plavix] Allergy Hives Verified 03/03/18 22:04 Penicillins [PCN] Allergy Rash Verified 03/03/18 22:04 All Systems Review: The remainder of the systems were reviewed and are negative Physical Examination Vital Signs, Last 4 Hours Temp Pulse Resp BP Pulse Ox 03/04/18 18:35 61 18 129/74 93 03/04/18 18:12 62 18 148/76 94 03/04/18 17:50 61 18 156/82 95 03/04/18 17:30 61 18 132/76 100 03/04/18 17:05 56 18 122/70 96 03/04/18 16:40 57 18 123/76 96 03/04/18 16:23 97.7 F 61 18 130/77 94 General: Conversant, No Apparent Distress HEENT: Atraumatic, Normocephaly, Trachea midline Neck: No JVD, Normal carotid pulses Cardiac: Reg Rate and Rhythm, Normal S1 and S2, No Murmur Lungs: Normal Breath Sounds, No Wheeze, Rales, Rhonchi Neuro: Alert and responsive, No focal deficits noted, Motor nerves intact, Sensory nerves intact Vascular: Normal capillary refill Abdomen: Soft, Non-tender Skin: No rashes noted on visualized skin Musculoskeletal: No Chest Wall Tenderness Extremities: No Clubbing, No Cyanosis, No Edema, Normal Pulses Results 03/04/18 06:11 03/04/18 00:21 Lab Results, Last 24 hours 03/04/18 03/04/18 03/04/18 00:21 00:21 00:21 WBC 5.6 Hgb 14.8 Hct 42.9 Plt Count 198 INR APTT Sodium 135 L Potassium 4.3 Chloride 103 Carbon Dioxide 25 BUN 8 Creatinine 0.83 Glucose 113 H Calcium 9.4 Troponin I < 0.03 03/04/18 03/04/18 03/04/18 05:08 06:11 06:11 WBC 4.4 Hgb 14.7 Hct 42.4 Plt Count 182 INR 1.0 APTT 33.9 Sodium Potassium Chloride Carbon Dioxide BUN Creatinine Glucose Calcium Troponin I 0.04 H* 03/04/18 03/04/18 14:04 18:42 WBC Hgb Hct Plt Count INR APTT 83.5 H D 80.9 H Sodium Potassium Chloride Carbon Dioxide BUN Creatinine Glucose Calcium Troponin I - Imaging Chest Xray: image reviewed (Normal cardiac size. No active pulmonary disease.) Consult Discharge Plan - Plan Referrals: Marely Alcaraz DO [Primary Care Provider] -
[2018-03-04 20:31] LABS: Estimated Average Glucose 108 mg/dl; Hemoglobin A1C 5.4 %
[2018-03-05 00:59] LABS: Basophils % 0.3 %; Eosinophils # 0.2 K/mcL (0.0-0.6); Hematocrit 41.7 % (37.5-50.1); Hemoglobin 14.3 g/dL (12.9-16.9); Immature Granulocytes % 0.4 % (0-4); Lymphocytes # 0.8 K/mcL (0.6-4.6); Lymphocytes % 11.7 %; Mean Corpuscular HGB Conc 34.3 g/dL (31.6-35.5); Mean Corpuscular Hemoglobin 33.9 pg (28.0-33.3); Mean Corpuscular Volume 98.8 fL (83.0-100.0); Mean Platelet Volume 9.1 fL (9.4-12.4); Monocytes # 0.5 K/mcL (0.0-1.3); Monocytes % 7.5 %; Platelet Count 165 K/mcL (140-400); Red Blood Count 4.22 M/mcL (4.19-5.50); Segmented Neutrophils % 77.1 %
[2018-03-05 01:03] LABS: Neutrophils # 5.3 K/mcL (1.6-8.9)
[2018-03-05 01:22] LABS: BUN/Creatinine Ratio 11 (6-26); Blood Urea Nitrogen 11 mg/dL (8-23); Calcium 9.1 mg/dL (8.6-10.3); Carbon Dioxide 26 mEq/L (23-29); Chloride 107 mEq/L (98-107); Glucose 97 mg/dL (70-105); Osmolality,Calculated 285 (280-300); Potassium 4.5 mEq/L (3.5-5.1); Sodium 138 mEq/L (136-145); eGFR For African Americans > 60 (> 60); eGFR For Non-African Americans > 60 (> 60)
--- NOTE | 2018-03-05 07:12 | Cardiothoracic Progress Note ---
Date of Encounter: 03/05/18 Time of Encounter: 07:11 - Assessment and plan (1) CAD (coronary artery disease) Current Visit: Yes Status: Acute The patient is a 67-year-old hypertensive man with hypercholesterolemia, known CAD, and known PAD. Yesterday, he experienced left precordial chest pain, diaphoresis, and palpitations which lasted for approximately 3 hours. He was eventually evaluated at [facility] emergency department if his 's insistence. He had mildly elevated troponin I levels and was admitted for further cardiac workup. A transthoracic echocardiogram revealed an LVEF 60% with normal left ventricular size and function. Subsequent cardiac catheterization however, revealed severe 3 vessel CAD and an LVEF 65%. In particular the patient has a 90% mid LAD lesion, a 60% proximal LCx lesion, and a subtotally occluded proximal RCA which fills distally via [id number] collaterals. He has been recommended for CABG. I concur with this recommendation. The STS risk calculator reveals an operative mortality risk 1.26%, deep sternal wound infection risk 0.57%, permanent stroke risk 0.90%, renal failure risk 1.74%, and reoperation risk 4.98%. The patient understands the procedure, benefits, alternatives, and risks, and gives his informed consent. The patient is tentatively scheduled for CABG on 03/07/2018. The assessment and plan as outlined above was discussed with the patient and/or family members who expressed understanding and agreement. All questions were answered. Qualifiers: Coronary Disease-Associated Artery/Lesion type: [place] artery [place] vs. transplanted heart: [place] heart Associated angina: with unstable angina Qualified Code(s): I25.110 - Atherosclerotic heart disease of [place] coronary artery with unstable angina pectoris - Subjective Interval history: The patient remained hemodynamic stable overnight. He has had no further chest pain. He has no complaints. Vital Signs, Last 4 Hours Temp Pulse Resp BP Pulse Ox 03/05/18 03:52 97.9 F 65 18 126/71 94 Oxgyen Flow Rate Oxygen Flow Rate (LPM) 2 Clinical Data, last 8 Hours Output, Urine Amount 400 Output, Urine Amount 500 Weight 03/03/18 03/04/18 03/05/18 23:59 23:59 23:59 Weight 102 kg - Physical Examination General: Conversant, No Apparent Distress Neck: No JVD, Normal carotid pulses Cardiac: Reg Rate and Rhythm, Normal S1 and S2, No Murmur Lungs: Normal Breath Sounds, No Wheeze, Rales, Rhonchi Neuro: Alert and responsive, No focal deficits noted Vascular: Normal capillary refill Musculoskeletal: No Chest Wall Tenderness Extremities: No Clubbing, No Cyanosis, No Edema, Normal Pulses - Labs 03/05/18 00:46 03/05/18 00:46 Lab Results, Last 24 hours 03/04/18 03/04/18 03/05/18 14:04 18:42 00:46 WBC 6.9 D Hgb 14.3 Hct 41.7 Plt Count 165 APTT 83.5 H D 80.9 H Sodium Potassium Chloride Carbon Dioxide BUN Creatinine Glucose Calcium 03/05/18 03/05/18 00:46 00:46 WBC Hgb Hct Plt Count APTT 41.4 H Sodium 138 Potassium 4.5 Chloride 107 Carbon Dioxide 26 BUN 11 Creatinine 0.98 Glucose 97 Calcium 9.1 - VTE Documentation of Mechanical Device: Intermittent pneumatic compression device Consult Discharge Plan - Plan Referrals: Marely Alcaraz DO [Primary Care Provider] -
--- NOTE | 2018-03-05 08:08 | Event Note ---
Date of Encounter: 03/05/18 Time of Encounter: 08:05 - Cardiology Event Note C report reviewed with severe CAD recommendations for CT surgery consult. CT surgery note reviewed and plan for CABG on Wednesday. 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 Re-consult of needed.
[2018-03-05] MEDS: Lisinopril 20 MG TABLET PO SCH (09:31)
[2018-03-05] MEDS: Aspirin Enteric Coated 81 MG Tablet PO SCH (09:31)
[2018-03-05] MEDS: Famotidine 20 MG TABLET PO SCH (09:31)
[2018-03-05] MEDS: Heparin 25,000 UNIT/500 ML D5W 25,000 UNIT/500 ML BAG IVC SCH (13:55)
--- NOTE | 2018-03-05 14:58 | Internal Med Progress Note ---
Date of Encounter: 03/05/18 Time of Encounter: 09:45 - Assessment and plan (1) ACS (acute coronary syndrome) Current Visit: Yes Status: Acute Assessment and plan: Chest pain with elevated troponin at .04. History of CAD and stents 19 years prior. s/p C found to have multivessel disease. Plan for CABG on Wednesday. c/w home medications. (2) Hypertension Current Visit: Yes Status: Acute Assessment and plan: BP controlled. Close monitoring. Continue home medicine. Qualifiers: Hypertension type: essential hypertension Qualified Code(s): I10 - Essential (primary) hypertension (3) Hyperlipidemia Current Visit: Yes Status: Acute Assessment and plan: c/w home statin Qualifiers: Hyperlipidemia type: unspecified Qualified Code(s): E78.5 - Hyperlipidemia , unspecified - Time Spent With Patient Total time spent is greater than 50% in coordination of care (as documented) at patient's floor/unit and/or counseling patient: - Subjective Interval history: Reported feeling fine this morning, denies any chest pain or SOB. - Constitutional Vitals: Temp Pulse Resp BP Pulse Ox 98.4 F 66 16 111/65 98 03/05/18 10:59 03/05/18 10:59 03/05/18 10:59 03/05/18 10:59 03/05/18 10:59 Exam: General: Alert and oriented Skin: Normal color, no rash, no lesions. HEENT: EOMI, pupils equal, round and reactive. Cardiovascular: Regular rate, regular rhythm. Lungs:Normal breath sounds, no wheezes or crackles. Abdomen:Soft, non-tender, no rigidity. Extremities:No deformity, no edema or tenderness, no joint swelling or clubbing. Neurological:Normal cognition, no weakness, no numbness. Rest of the physical exam is non contributory Internal Medicine: Result - Labs CBC & Chem 7: 03/05/18 00:46 03/05/18 00:46 Labs: Short CBC 03/05/18 Range/Units 00:46 WBC 6.9 D (4.3-11.1) K/mcL Hgb 14.3 (12.9-16.9) g/dL Hct 41.7 (37.5-50.1) % Plt Count 165 (140-400) K/mcL Neutrophils # 5.3 (1.6-8.9) K/mcL BMP 07/07/18 00:46 Sodium 138 Potassium 4.5 Chloride 107 Carbon Dioxide 26 BUN 11 Creatinine 0.98 Glucose 97 Calcium 9.1 - ABG Interpretation ABG results: PT/INR, D-dimer PT 11.3 Seconds (9.4-12.1) 03/04/18 06:11 - Impressions Impressions Echocardiogram 03/04/18 07:00 Impressions: Technically sub-optimal due to poor echocardiographic windows. LVEF 60%. Not all segments were well visualized, but overall LVEF appears normal. Normal LV chamber size and wall thickness. Mild left ventricular diastolic dysfunction. Moderately dilated left atrium. Unable to estimate RVSP due to lack of TR jet. No significant valvular dysfunction. Left Ventricular Wall Motion: Rest Echo Findings All wall segments showed normal motion. Findings: Study Quality * Technically sub-optimal due to poor echocardiographic windows. ECG Findings * Normal sinus rhythm. Left Ventricle * LVEF 60%. * Normal LV chamber size and wall thickness. * Not all segments were well visualized, but overall LVEF appears normal * Mild left ventricular diastolic dysfunction. Left Atrium * Moderately dilated left atrium. Right Atrium * Mildly dilated right atrium. Right Ventricle * Normal right ventricular structure and function. Aortic Valve * Aortic valve not well visualized. * No aortic stenosis. * No aortic regurgitation. Mitral Valve * Normal mitral valve structure and function. * No mitral regurgitation. * No mitral stenosis. Tricuspid Valve * Tricuspid valve not well visualized. * No tricuspid regurgitation. * Unable to estimate RVSP due to lack of TR jet. Pulmonic Valve * Pulmonic valve not well visualized. Aorta * Normally sized aortic root. Pericardium * The pericardium appears normal. IVC * Normal IVC dimensions and inspiratory collapse. Pulmonary Artery * Normal visualized portions of the main pulmonary artery. - VTE Documentation of Mechanical Device: Intermittent pneumatic compression device Consult Discharge Plan - Plan Referrals: Marely Alcaraz DO [Primary Care Provider] -
[2018-03-05] MEDS: *HR* Heparin 5,000 UNIT/ML VIAL IVP PRN ×2 (16:35→22:54)
[2018-03-06 05:48] LABS: Basophils % 0.1 %; Eosinophils # 0.2 K/mcL (0.0-0.6); Eosinophils % 1.5 %; Hematocrit 41.1 % (37.5-50.1); Hemoglobin 13.7 g/dL (12.9-16.9); Immature Granulocytes % 0.5 % (0-4); Lymphocytes # 0.9 K/mcL (0.6-4.6); Lymphocytes % 8.9 %; Mean Corpuscular HGB Conc 33.3 g/dL (31.6-35.5); Mean Corpuscular Hemoglobin 32.8 pg (28.0-33.3); Mean Corpuscular Volume 98.3 fL (83.0-100.0); Mean Platelet Volume 9.4 fL (9.4-12.4); Monocytes # 0.9 K/mcL (0.0-1.3); Monocytes % 8.9 %; Neutrophils # 7.9 K/mcL (1.6-8.9); Platelet Count 150 K/mcL (140-400); Red Blood Count 4.18 M/mcL (4.19-5.50); Segmented Neutrophils % 80.1 %
[2018-03-06 06:08] LABS: Alanine Aminotransferase 20 Units/L (7-52); Albumin 3.9 g/dL (3.5-5.7); Albumin/Globulin Ratio 1.8 (1.1-2.2); Alkaline Phosphatase 63 Units/L (34-104); Aspartate Amino Transferase 15 Units/L (13-39); BUN/Creatinine Ratio 18 (6-26); Bilirubin,Total 1.1 mg/dL (0.3-1.0); Blood Urea Nitrogen 13 mg/dL (8-23); Calcium 9.2 mg/dL (8.6-10.3); Carbon Dioxide 25 mEq/L (23-29); Chloride 107 mEq/L (98-107); Globulin 2.2 g/dL (2.4-3.5); Glucose 98 mg/dL (70-105); Osmolality,Calculated 284 (280-300); Potassium 3.8 mEq/L (3.5-5.1); Sodium 137 mEq/L (136-145); Total Protein 6.1 g/dL (6.4-8.9); eGFR For African Americans > 60 (> 60); eGFR For Non-African Americans > 60 (> 60)
[2018-03-06] MEDS: Aspirin Enteric Coated 81 MG Tablet PO SCH (08:54)
[2018-03-06] MEDS: Lisinopril 20 MG TABLET PO SCH (08:54)
[2018-03-06] MEDS: Famotidine 20 MG TABLET PO SCH (08:54)
--- NOTE | 2018-03-06 09:01 | Cardiothoracic Progress Note ---
Date of Encounter: 03/06/18 Time of Encounter: 09:00 - Assessment and plan (1) CAD (coronary artery disease) Current Visit: Yes Status: Acute The patient is a 67-year-old hypertensive man with hypercholesterolemia, known CAD, and known PAD. Yesterday, he experienced left precordial chest pain, diaphoresis, and palpitations which lasted for approximately 3 hours. He was eventually evaluated at [facility] emergency department if his 's insistence. He had mildly elevated troponin I levels and was admitted for further cardiac workup. A transthoracic echocardiogram revealed an LVEF 60% with normal left ventricular size and function. Subsequent cardiac catheterization however, revealed severe 3 vessel CAD and an LVEF 65%. In particular the patient has a 90% mid LAD lesion, a 60% proximal LCx lesion, and a subtotally occluded proximal RCA which fills distally via [id number] collaterals. He has been recommended for CABG. I concur with this recommendation. The STS risk calculator reveals an operative mortality risk 1.26%, deep sternal wound infection risk 0.57%, permanent stroke risk 0.90%, renal failure risk 1.74%, and reoperation risk 4.98%. The patient understands the procedure, benefits, alternatives, and risks, and gives his informed consent. The patient is tentatively scheduled for CABG on 03/07/2018. The assessment and plan as outlined above was discussed with the patient and/or family members who expressed understanding and agreement. All questions were answered. Qualifiers: Coronary Disease-Associated Artery/Lesion type: [place] artery [place] vs. transplanted heart: [place] heart Associated angina: with unstable angina Qualified Code(s): I25.110 - Atherosclerotic heart disease of [place] coronary artery with unstable angina pectoris - Subjective Interval history: The patient remained hemodynamic stable overnight. He has had no chest pain. He has no complaints. Vital Signs, Last 4 Hours Temp Pulse Resp BP Pulse Ox 03/06/18 07:14 98.6 F 67 17 128/75 94 Oxgyen Flow Rate Oxygen Flow Rate (LPM) 2 - Physical Examination General: Conversant, No Apparent Distress Neck: No JVD, Normal carotid pulses Cardiac: Reg Rate and Rhythm, Normal S1 and S2, No Murmur Lungs: Normal Breath Sounds, No Wheeze, Rales, Rhonchi Neuro: Alert and responsive, No focal deficits noted Vascular: Normal capillary refill Musculoskeletal: No Chest Wall Tenderness Extremities: No Clubbing, No Cyanosis, No Edema - Labs 03/06/18 04:50 03/06/18 04:50 Lab Results, Last 24 hours 03/05/18 03/05/18 03/06/18 15:53 21:56 04:50 WBC 9.8 Hgb 13.7 Hct 41.1 Plt Count 150 APTT 46.7 H D 51.9 H Sodium Potassium Chloride Carbon Dioxide BUN Creatinine Glucose Calcium Total Bilirubin AST ALT Alkaline Phosphatase 03/06/18 03/06/18 04:50 04:50 WBC Hgb Hct Plt Count APTT 70.8 H Sodium 137 Potassium 3.8 Chloride 107 Carbon Dioxide 25 BUN 13 Creatinine 0.72 Glucose 98 Calcium 9.2 Total Bilirubin 1.1 H AST 15 ALT 20 Alkaline Phosphatase 63 - VTE Documentation of Mechanical Device: Intermittent pneumatic compression device Consult Discharge Plan - Plan Referrals: Marely Alcaraz DO [Primary Care Provider] -
[2018-03-06] MEDS: Heparin 25,000 UNIT/500 ML D5W 25,000 UNIT/500 ML BAG IVC SCH (13:47)
--- NOTE | 2018-03-06 18:14 | Internal Med Progress Note ---
Date of Encounter: 03/06/18 Time of Encounter: 17:55 - Assessment and plan (1) ACS (acute coronary syndrome) Current Visit: Yes Status: Acute Assessment and plan: Chest pain with elevated troponin at .04. History of CAD and stents 19 years prior. s/p C found to have multivessel disease. Plan for CABG on 03/07/2018. c/w home medications. (2) Hypertension Current Visit: Yes Status: Chronic Assessment and plan: Tenormin and Lisinopril Qualifiers: Hypertension type: essential hypertension Qualified Code(s): I10 - Essential (primary) hypertension (3) Hyperlipidemia Current Visit: Yes Status: Acute Assessment and plan: Lipitor Qualifiers: Hyperlipidemia type: unspecified Qualified Code(s): E78.5 - Hyperlipidemia , unspecified - Time Spent With Patient Total time spent is greater than 50% in coordination of care (as documented) at patient's floor/unit and/or counseling patient: less than 15 minutes - Subjective Interval history: Pt denies chest pain or SOB. Denies fever, chills, N/V , constipation or diarrhea. at bedside. - Constitutional Vitals: Temp Pulse Resp BP Pulse Ox 98.6 F 70 18 123/64 94 03/06/18 16:51 03/06/18 16:51 03/06/18 16:51 03/06/18 16:51 03/06/18 16:51 General appearance: Present: A&O X 3, obese - Head Head exam: Present: atraumatic, normocephalic - Eye Eye exam: Present: PERRL, conjuntiva pink, sclera anicteric Pupils: Present: PERRL - Neck Neck exam general surgery: Present: supple, trachea midline. Absent: lymphadenopathy - Respiratory Respiratory exam: Present: CTAB. Absent: accessory muscle use, rales, rhonchi, wheezes - Cardiovascular Cardiovascular exam: Present: RRR, +S1, +S2. Absent: diastolic murmur, gallop, rubs, systolic murmur - GI/Abdominal GI/Abdominal exam: Present: normal bowel sounds, soft, no peritoneal signs. Absent: distended, tenderness - Extremities Exam Extremities exam: Present: warm, radial pulses palpable and symmetrical. Absent : calf tenderness, cyanotic, pedal edema - Neurological Exam Neurological exam: Present: CN II-XII intact, oriented X3, no focal deficits. Absent: pronater drift, facial droop, speech deficit - Skin Skin exam: Present: dry, intact Internal Medicine: Result - Labs CBC & Chem 7: 03/06/18 04:50 03/06/18 04:50 Labs: Short CBC 03/06/18 Range/Units 04:50 WBC 9.8 (4.3-11.1) K/mcL Hgb 13.7 (12.9-16.9) g/dL Hct 41.1 (37.5-50.1) % Plt Count 150 (140-400) K/mcL Neutrophils # 7.9 (1.6-8.9) K/mcL BMP 03/06/18 04:50 Sodium 137 Potassium 3.8 Chloride 107 Carbon Dioxide 25 BUN 13 Creatinine 0.72 Glucose 98 Calcium 9.2 Liver Function 03/06/18 Range/Units 04:50 Total Bilirubin 1.1 H (0.3-1.0) mg/dL AST 15 (13-39) Units/L ALT 20 (7-52) Units/L Alkaline Phosphatase 63 (34-104) Units/L Albumin 3.9 (3.5-5.7) g/dL - ABG Interpretation ABG results: PT/INR, D-dimer PT 11.3 Seconds (9.4-12.1) 03/04/18 06:11 - VTE Documentation of Mechanical Device: Intermittent pneumatic compression device Consult Discharge Plan - Plan Referrals: Marely Alcaraz DO [Primary Care Provider] -
[2018-03-06] MEDS: Chlorhexidine Rinse 15 ML MOUTHWASH MM SCH (20:41)
[2018-03-07] MEDS: *HR* Heparin 5,000 UNIT/ML VIAL IVP PRN (00:28)
[2018-03-07] MEDS ORDERED: Aspirin 81 MG TAB.CHEW PO ONE (06:00)
[2018-03-07] MEDS: Chlorhexidine Rinse 15 ML MOUTHWASH MM SCH ×2 (06:43→21:20)
[2018-03-07] MEDS ORDERED: *HR* Midazolam HCl 5 MG/5 ML VIAL IVP ONE (06:54)
[2018-03-07] MEDS ORDERED: *HR* FentaNYL (PF) 1,000 MCG/20 ML VIAL ONE (06:54)
[2018-03-07] MEDS ORDERED: *HR* Propofol 200 MG/20 ML VIAL IVP ONE (06:55)
[2018-03-07] MEDS ORDERED: *HR* Rocuronium Bromide 50 MG/5 ML VIAL ONE ×2 (06:56→09:51)
[2018-03-07] MEDS ORDERED: Tranexamic Acid 1,000 MG/10 ML VIAL ONE (06:57)
[2018-03-07] MEDS ORDERED: Nitroglycerin 25 MG/250 ML INFUS..BTL IVC ONE (07:00)
[2018-03-07] MEDS ORDERED: Vancomycin (wt based) 1,000 MG VIAL IV ONE (07:00)
[2018-03-07] MEDS ORDERED: Levofloxacin 750 MG/150 ML 750 MG/150 ML BAG IVPB ONE (07:14)
--- NOTE | 2018-03-07 07:25 | Anesthesia Evaluation PreOp ---
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: Denies Any Significant HX Other Medical History: Denies Any Significant HX, GERD Anesthesia History: No Prior Anesthetic Complications Alcohol Use: occasionally Drug use: none Medications and Allergies Aspirin Enteric Coated [Aspirin EC] 81 mg PO DAILY 03/03/18 [History] Atenolol [Tenormin] 50 mg PO DAILY 03/03/18 [History] Atorvastatin Calcium [Lipitor] 80 mg PO HS 03/03/18 [History] Cilostazol [Pletal] 100 mg PO BID 03/03/18 [History] Ezetimibe [Ezetimibe] 10 mg PO DAILY 03/03/18 [History] Lisinopril [Zestril] 20 mg PO DAILY 03/03/18 [History] Ranitidine HCl [Acid Single Wire Saw Operator] 150 mg PO DAILY 03/03/18 [History] 3 Allergy/AdvReac Type Severity Reaction Status Date / Time clindamycin Allergy Hives Verified 03/03/18 22:04 clopidogrel [From Plavix] Allergy Hives Verified 03/03/18 22:04 Penicillins [PCN] Allergy Rash Verified 03/03/18 22:04 - Meds/Allergy Pre-op Review Medications Reviewed: Yes Allergies Reviewed: Yes Beta Blockers on Current Med List: Yes If Beta Blockers taken, Date/Time (Last Dose taken): 630 02/05/2018 Anesthesia Results - Labs 03/06/18 04:50 03/06/18 04:50 - Imaging EKG: report reviewed, image reviewed Chest x-ray: report reviewed, image reviewed Additional studies: 03/03/2018 [facility] Impressions: There is severe three vessel coronary artery disease involving distal LMCA by IVUS (6.03mm2) with heavily calcified RCA subtotally occluded. High SYNTAX score The left ventricle is normal and has normal contractility EF 65% LV Ventriculography Ejection Method: LV Gram Ejection Fraction: 65% Wall Motion: LOZANO Anterobasal Normal Anterolateral Normal Apical: Normal Inferoapical Normal Inferobasal Normal Coronary Dominance: right Lesion Findings/Interventions * Left Main Coronary Artery There is a 40-50% stenosis in the Distal LMCA. The lesion has a NASIMA flow of 3. IVUS left main - 6.03mm2 NIXON * Left Anterior Descending There is a 95% stenosis in the Mid LAD. The lesion has a NASIMA flow of 3 and has no thrombus present. * Circumflex There is a 60% stenosis in the Proximal Circumflex. The lesion has a NASIMA flow of 3. * Right Coronary Artery There is a 99% stenosis in the Mid RCA. The lesion has a NASIMA flow of 1, has no thrombus present, and has moderate calcification noted. Echo 03/04/2018 Impressions: Technically sub-optimal due to poor echocardiographic windows. LVEF 60%. Not all segments were well visualized, but overall LVEF appears normal. Normal LV chamber size and wall thickness. Mild left ventricular diastolic dysfunction. Moderately dilated left atrium. Unable to estimate RVSP due to lack of TR jet. No significant valvular dysfunction. Left Ventricular Wall Motion: Rest Echo Findings All wall segments showed normal motion. Findings: Study Quality * Technically sub-optimal due to poor echocardiographic windows. ECG Findings * Normal sinus rhythm. Left Ventricle * LVEF 60%. * Normal LV chamber size and wall thickness. * Not all segments were well visualized, but overall LVEF appears normal * Mild left ventricular diastolic dysfunction. Left Atrium * Moderately dilated left atrium. Right Atrium * Mildly dilated right atrium. Right Ventricle * Normal right ventricular structure and function. Aortic Valve * Aortic valve not well visualized. * No aortic stenosis. * No aortic regurgitation. Mitral Valve * Normal mitral valve structure and function. * No mitral regurgitation. * No mitral stenosis. Tricuspid Valve * Tricuspid valve not well visualized. * No tricuspid regurgitation. * Unable to estimate RVSP due to lack of TR jet. Pulmonic Valve * Pulmonic valve not well visualized. Aorta * Normally sized aortic root. Pericardium * The pericardium appears normal. IVC * Normal IVC dimensions and inspiratory collapse. Pulmonary Artery * Normal visualized portions of the main pulmonary artery. Anesthesia Exam Vital Signs/O2 Sat/Glucose, Most Recent Temp Pulse Resp BP Pulse Ox 98.4 F 73 20 146/75 93 03/07/18 03:55 03/07/18 03:55 03/07/18 03:55 03/07/18 03:55 03/07/18 03:55 Height: 1.75 m Weight: 96 kg NPO (# of Hours): > 8 hours - HEENT Pupil (Motor): Pupils equal Mallampati: II Denture Type: Upper: Complete, Lower: Complete Oral Opening: Greater than 3 - DISTRICT WIRE CHIEF LOC: Oriented [employer] W[employer] CHIEF Motor: Normal RUE, Normal LUE, Normal RLE, Normal LLE, Normal Face [employer] W[employer] CHIEF Sensory: Normal: RUE, LUE, RLE, LLE, Face - Cardiac Rhythm: Regular Murmur: None - Pulmonary Breath Sounds: bilateral Clear Respiratory Effort: Symmetrical Anesthesia Assess/Plan ASA Score: 4 Modified Thee Scale for Level of Consciousness: Cooperative, oriented, and tranquil Anesthetic Plan: General Monitoring Plan: Standard Monitors, A-Line, PAC, JANET Recovery Plan: ICU
[2018-03-07] MEDS ORDERED: Norepinephrine 4 MG in D5% in Water 250 ML IVC PRN (07:45)
[2018-03-07] MEDS ORDERED: Heparin 15,000 UNIT in 0.9 % Sodium Chloride 500 ML IV ONE (07:45)
[2018-03-07] MEDS ORDERED: Dextrose 50 % in Water (Vial) 30 ML, Sodium Bicarbonate 20 MEQ, Lidocaine 1% 5 ML, Insu... TH ONE ×3 (07:45)
[2018-03-07] MEDS ORDERED: Dextrose 50 % in Water (Vial) 30 ML, Sodium Bicarbonate 20 MEQ, Potassium Chloride 15 M... TH ONE (07:45)
[2018-03-07] MEDS ORDERED: Insulin Human Regular 100 UNIT in 0.9 % Sodium Chloride 100 ML IV PRN (07:45)
[2018-03-07] MEDS ORDERED: *HR* Magnesium Sulfate 2 GM/50 ML PIGGYBACK IVPB ONE (08:13)
[2018-03-07] MEDS ORDERED: Lidocaine 2% Syringe 100 MG/5 ML IV ONE (08:13)
[2018-03-07] MEDS ORDERED: *HR* Phenylephrine 10 MG/ML VIAL IVC ONE (08:13)
[2018-03-07] MEDS ORDERED: Mannitol 25% vial 12.5 GM/50 ML VIAL IVP ONE (08:13)
[2018-03-07] MEDS ORDERED: Tranexamic Acid 1,000 MG/10 ML VIAL IVPB ONE (08:13)
[2018-03-07] MEDS ORDERED: Albumin Human 25% 25 GM/100 ML IV.SOLN IV ONE (08:13)
[2018-03-07] MEDS ORDERED: *HR* Heparin 10,000 UNIT/10 ML VIAL IV ONE (08:13)
[2018-03-07] MEDS ORDERED: Lidocaine Jelly 6ml 1 APPL/6 ML JEL.PF.APP ONE (08:28)
[2018-03-07] MEDS ORDERED: Dexamethasone 4 MG/ML VIAL ONE (09:50)
[2018-03-07] MEDS ORDERED: Ondansetron 4 MG/2 ML VIAL ONE (09:50)
[2018-03-07 10:17] LABS: ABG Base Excess 2 mEq/L (-2 to 3); ABG Chloride 96 mEq/L (98-107); ABG Glucose 160 mg/dL (60-95); ABG HCO3 27 mEq/L (21-27); ABG Ionized Calcium 1.02 mmol/L (1.15-1.35); ABG Oxygen Saturation 100 % (95-98); ABG PCO2 41 mmHg (35-45); ABG PH 7.42 pH Units (7.32-7.45); ABG PO2 570 mmHg (85-104); ABG TCO2 28 mEq/L (20-26)
--- NOTE | 2018-03-07 10:27 | Anesthesia Procedures ---
Date of Encounter: 03/07/18 Time of Encounter: 08:00 Procedures: Anesthesia - Arterial Line Time out performed: Yes Sedation: Versed (mg): 3 Sedation: Fentanyl (mcg): 50 Supplemental Oxygen via Nasal Cannula (L/min): 6 Local Anesthetic: Lidocaine 1% Amount of Anesthetic used (mls): 0.2 Size (Gauge): 20 Length (inches): 1 3/4 Technique Used: sterile prep, direct puncture technique Post-Procedure: line taped into place, dry sterile dressing placed Patient tolerated procedure: well Complications: none Site: Radial L Vitals: see anesthesia chart for vitals - Central Line Placement Right IJ Consent obtained: written consent Time out performed: Yes Patient placed on monitor/pulse ox: Yes prep: mask, gown, gloves, other Central line prep: Chlorhexidine scrub Ultrasound used for placement: Yes Technique: Seldinger Lumen Inserted: single Size / Length: 9 Fr / 10 cm Post procedure: sutured in place, good blood return Patient tolerated procedure: well Complications: none Vitals: see anesthesia chart Comments: PAC inserted with pressure waveform analysis. secured at 55 cm
[2018-03-07] MEDS ORDERED: Albumin Human 5% 50.0 GM/1,000 ML VIAL ONE (10:29)
[2018-03-07 10:33] LABS: VBG Base Excess 2 mEq/L; VBG Chloride 96 mEq/L (98-107); VBG Glucose 150 mg/dl (65-95); VBG HCO3 27 mEq/L (21-27); VBG Ionized Calcium 1.07 mmol/L (1.15-1.35); VBG Oxygen Saturation 84 %; VBG PCO2 44 mmHg (41-51); VBG PO2 49 mmHg (25-50); VBG Total CO2 28 mEq/L
[2018-03-07] MEDS ORDERED: Amiodarone Premix 360 MG/200 ML BAG IVC ONE ×2 (10:39→12:06)
[2018-03-07] MEDS ORDERED: *HR* Amiodarone 150 MG/3 ML VIAL IVPB ONE (10:44)
[2018-03-07 10:51] LABS: ABG Base Excess 2 mEq/L (-2 to 3); ABG Chloride 94 mEq/L (98-107); ABG Glucose 143 mg/dL (60-95); ABG HCO3 27 mEq/L (21-27); ABG Ionized Calcium 1.05 mmol/L (1.15-1.35); ABG Oxygen Saturation 100 % (95-98); ABG PCO2 43 mmHg (35-45); ABG PO2 334 mmHg (85-104); ABG TCO2 28 mEq/L (20-26)
[2018-03-07 11:17] LABS: ABG Base Excess 1 mEq/L (-2 to 3); ABG Chloride 98 mEq/L (98-107); ABG Glucose 127 mg/dL (60-95); ABG HCO3 27 mEq/L (21-27); ABG Ionized Calcium 1.18 mmol/L (1.15-1.35); ABG Oxygen Saturation 100 % (95-98); ABG PCO2 47 mmHg (35-45); ABG PH 7.37 pH Units (7.32-7.45); ABG PO2 291 mmHg (85-104); ABG TCO2 28 mEq/L (20-26)
[2018-03-07 11:53] LABS: ABG Base Excess 0 mEq/L (-2 to 3); ABG Chloride 100 mEq/L (98-107); ABG Glucose 122 mg/dL (60-95); ABG HCO3 26 mEq/L (21-27); ABG Ionized Calcium 1.22 mmol/L (1.15-1.35); ABG Oxygen Saturation 100 % (95-98); ABG PCO2 43 mmHg (35-45); ABG PH 7.38 pH Units (7.32-7.45); ABG PO2 238 mmHg (85-104); ABG TCO2 27 mEq/L (20-26)
[2018-03-07 11:53] LABS: ABG Base Excess 0 mEq/L (-2 to 3); ABG Chloride 101 mEq/L (98-107); ABG Glucose 133 mg/dL (60-95); ABG HCO3 26 mEq/L (21-27); ABG Ionized Calcium 1.17 mmol/L (1.15-1.35); ABG Oxygen Saturation 99 % (95-98); ABG PCO2 49 mmHg (35-45); ABG PH 7.34 pH Units (7.32-7.45); ABG PO2 147 mmHg (85-104); ABG TCO2 28 mEq/L (20-26)
[2018-03-07] MEDS ORDERED: Potassium Chloride 40 MEQ/200 ML BAG IVPB PRN (12:06)
[2018-03-07] MEDS ORDERED: *HR* Dextrose 50 % in Water (Syg) 50 ML SYRINGE IVP PRN (12:06)
[2018-03-07] MEDS ORDERED: Insulin Regular, Human 100 UNIT/ML IV PRN (12:06)
[2018-03-07] MEDS ORDERED: Acetaminophen 650 MG RECTAL SUPP RC PRN (12:06)
[2018-03-07] MEDS ORDERED: Acetaminophen 325 MG TABLET PO PRN (12:06)
[2018-03-07] MEDS ORDERED: Calcium Chloride 1,000 MG in 0.9 % Sodium Chloride 100 ML IVPB PRN (12:06)
--- NOTE | 2018-03-07 12:06 | Operative Note ---
Date of procedure: 03/07/18 Pre-op diagnosis: CAD Post-op diagnosis: same Procedure: 1. CABG 3 (TONY to LAD, SVG to OM1, SVG to PDA). 2. Endoscopic vein harvesting, greater saphenous vein from right lower extremity. Implants: None. Complications: None. Anesthesia: GETA Surgeon: Desirae Cramer Was there an delivery driver assistant present: Yes Lithographic Photographer Apprentice: Parth Handley Estimated blood loss (cc): 500 Specimen: None. Condition: stable Disposition: ICU Procedure in Detail: INDICATIONS FOR OPERATION: The patient is a 67 year old hypertensive man with hypercholesterolemia and known CAD and known peripheral arterial disease. The patient's cardiac history dates back to 1998 when he suffered a myocardial infarction. The patient was transferred to the [facility] and underwent percutaneous catheter intervention and stent placement 2. 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 At that time the patient would have vague substernal chest discomfort, but denied any shortness of breath, dyspnea exertion, diaphoresis, nausea, vomiting, lightheadedness, or syncope. Yesterday; however, the patient had sudden onset of left precordial chest pain, diaphoresis, and palpitations. The symptoms lasted for approximately 3 hours and he eventually sought treatment at [facility] emergency department at the insistence of his . The patient had mildly elevated troponin I levels and was admitted for further cardiac workup given his known CAD, presenting symptoms, and cardiac risk profile. The patient underwent a transthoracic echocardiogram this afternoon and was found to have an LVEF 60% with normal left ventricular size and function. There were no valvular abnormalities noted. Subsequent cardiac catheterization revealed severe 3 vessel CAD and an LVEF 65%. In particular the patient has a 90% mid LAD lesion, a 60% proximal LCx lesion, and a subtotally occluded proximal RCA which fills distally via [id number] collaterals. He has been recommended for CABG. He was on blood cell preoperatively for his right lower extremity stents in this was stopped for 3 days prior to CABG. FINDINGS AT OPERATION: The aorta was of normal caliber without calcification. The coronary arteries measure approximately 2-3 mm in diameter had mild distal disease. The greater saphenous vein was harvested endoscopically from the right lower extremity from the knee to the groin and was of good quality. The total bypass time was 63 minutes, cross-clamp time 35 minutes, intentional hypothermia of 35.7 degrees centigrade. DESCRIPTION OF OPERATION: After obtaining informed operative consent from the patient, he was taken to the operative room where a satisfactory general endotracheal anesthetic was induced. Appropriate monitor lines were placed, the patient's chest, abdomen, and lower extremities were prepped and draped in a sterile fashion. The greater saphenous vein was harvested endoscopically from the right lower extremity from the knee to the groin. The vein was removed, distended, and found to be of good quality. The subcutaneous tissue and skin edges were reapproximated running Vicryl sutures. Simultaneously, a standard median sternotomy incision was made and the sternum divided. The TONY was taken down from its bed and side branches divided between hemoclips. The sternum was and the pericardium opened and reflected laterally. The patient was prepared for cannulation by placing pursestring sutures the distal ascending aorta, mid-ascending aorta, and right atrial appendage. The patient was heparinized and when the ACT was greater than 200 seconds, the distal ascending aorta was cannulated followed by placement of a dual stage venous cannula through the right atrial appendage and into the inferior vena cava. A stab-in antegrade metabolic cannula was placed in the mid-ascending aorta. The patient was placed on bypass and the temperature allowed to drift to 35.7 degrees centigrade. The distal targets were identified and the aorta was crossclamped. The patient received 700 mL of cold antegrade crystalloid cardioplegia through the aortic root and the patient's heart obtained rapid diastolic arrest. The OM1 branch was opened be blade and the vein was anastomosed in an end-to- side fashion using running 7-0 Prolene suture. The anastomosis found to be hemostatic. This processes was repeated for the PDA branch. After completion of this anastomosis, the patient received a final dose of cold antegrade crystalloid cardioplegia through the aortic root. The LAD was opened with a [place] blade and the TONY was anastomosed in an end-to-side fashion using a running 7-0 Prolene suture. The anastomosis was found to be hemostatic and the mammary pedicle was tacked to the epicardium using interrupted 5-0 silk suture. Rewarming was begun during this anastomosis. The aortic cross-clamp was released and the heart distended. The veins were measured and cut appropriate lengths. A partial occluding clamps placed across the mid-ascending aorta and the antegrade cardioplegia cannula was removed. An additional aortotomy site was made 11 blade and both sites were enlarged performing were punch. The veins were anastomosed in an end-to-side fashion to the aorta using a running 5-0 Prolene suture. The vein grafts were occluded with bulldog clamps and de-aired the 25-gauge needle prior to removing the partial occluding clamp. The proximal and distal anastomoses were found to be hemostatic and the proximal anastomoses were marked with radiopaque loops. Two right ventricular temporary epicardial pacing lesion placed, and 3 chest suture placed, 2 in the mediastinum and one into the left pleural space. During rewarming the patient' s heart rhythm degenerated to ventricular fibrillation he required two 10 J direct-current shocks and heart regained a stable rhythm. This rhythm however, was atrial fibrillation and he required a single 10 J synchronized cardioversion. This resulted in normal sinus rhythm. When the patient's systemic temperature reached 36 degrees centigrade, he was ventilated to receive line. He was weaned from bypass required no inotropic support. Protamine was administered and the aortic and venous cannulae were removed. The pursestring sutures were secured and the venous cannulation site was reinforced with a running 4-0 Prolene suture. The pericardium was loosely approximated in the midline. The sternum was reapproximated using doubled wires , and the pectoralis major fascia, rectus abdominis fascia, simultaneous tissue , and skin edges were reapproximated running Vicryl sutures. A negative pressure sterile dressing was applied to the sternotomy incision. The patient was transferred to the ICU in satisfactory postoperative condition. There were no intraoperative complications, and the instrument, needle, and sponge count were corrected at the end of operation. - Open Heart Detail ELICEO (Internal Mammary Artery) Usage: Yes Cardiopulmonary Bypass Time (mins): 63 Aortic Cross Clamp Time (mins): 35 Intentional Hypothermia Temperature (C.): 35.7
[2018-03-07] MEDS ORDERED: Prochlorperazine 10 MG/2 ML VIAL IVP PRN (12:18)
[2018-03-07 12:26] LABS: Basophils % 0.1 %; Eosinophils # 0.1 K/mcL (0.0-0.6); Eosinophils % 0.4 %; Hematocrit 34.3 % (37.5-50.1); Immature Granulocytes % 1.8 % (0-4); Lymphocytes # 0.5 K/mcL (0.6-4.6); Lymphocytes % 3.6 %; Mean Corpuscular HGB Conc 34.1 g/dL (31.6-35.5); Mean Corpuscular Hemoglobin 33.8 pg (28.0-33.3); Mean Corpuscular Volume 99.1 fL (83.0-100.0); Mean Platelet Volume 9.4 fL (9.4-12.4); Monocytes # 0.7 K/mcL (0.0-1.3); Monocytes % 4.8 %; Neutrophils # 12.7 K/mcL (1.6-8.9); Platelet Count 103 K/mcL (140-400); Red Blood Count 3.46 M/mcL (4.19-5.50); Segmented Neutrophils % 89.3 %
[2018-03-07 12:27] LABS: Hemoglobin 11.7 g/dL (12.9-16.9)
[2018-03-07 12:32] LABS: ABG Base Excess -1 mEq/L (-2 to 3); ABG HCO3 26 mEq/L (21-27); ABG Oxygen Saturation 98 % (95-98); ABG PCO2 47 mmHg (35-45); ABG PH 7.34 pH Units (7.32-7.45); ABG PO2 111 mmHg (85-104); ABG TCO2 27 mEq/L (20-26)
[2018-03-07 12:33] LABS: INR 1.5
[2018-03-07 12:36] LABS: Activated Partial Thrombo Time 33.7 Seconds (26.0-36.0)
[2018-03-07 12:53] LABS: BUN/Creatinine Ratio 16 (6-26); Blood Urea Nitrogen 12 mg/dL (8-23); Calcium 7.6 mg/dL (8.6-10.3); Carbon Dioxide 26 mEq/L (23-29); Chloride 103 mEq/L (98-107); Glucose 170 mg/dL (70-105); Magnesium 2.8 mg/dL (1.6-2.6); Osmolality,Calculated 278 (280-300); Sodium 132 mEq/L (136-145); eGFR For African Americans > 60 (> 60); eGFR For Non-African Americans > 60 (> 60)
[2018-03-07] MEDS: *HR* OxyCODONE/APAP 5/325 TABLET PO PRN ×2 (12:53→22:25)
[2018-03-07] MEDS: *HR* FentaNYL (PF) 100 MCG/2 ML VIAL IVP PRN ×2 (12:53→14:34)
--- NOTE | 2018-03-07 13:08 | Anesthesia Evaluation Post Op ---
Date of Encounter: 03/07/18 Time of Encounter: 13:05 - Vital Signs Vital Signs: BP 128/53 HR 74 RR 16 O2sat 99% - Lungs Lungs: Clear Ascult./Percussion - Airway Airway: Intubated - Cardiovascular Regular Rate - Mental Status Mental Status: Sedated - Pain Pain Scale used: Winsome (Faces) - Hydration Hydration: NPO - Discharge Attestation: patient remains in ICU intubated sedated in stable but critical condition at this time.
[2018-03-07] MEDS: Pantoprazole 40 MG VIAL IVP SCH (13:17)
[2018-03-07] MEDS: 0.9 % Sodium Chloride w KCl 20 MEQ/1,000 ML MLS IVC SCH (13:21)
[2018-03-07 14:47] LABS: ABG Base Excess -2 mEq/L (-2 to 3); ABG HCO3 27 mEq/L (21-27); ABG Oxygen Saturation 88 % (95-98); ABG PCO2 67 mmHg (35-45); ABG PH 7.22 pH Units (7.32-7.45); ABG PO2 67 mmHg (85-104); ABG TCO2 30 mEq/L (20-26)
[2018-03-07] MEDS: Heparin 25,000 UNIT/500 ML D5W 25,000 UNIT/500 ML BAG IVC SCH (15:13)
[2018-03-07] MEDS: Aspirin Enteric Coated 81 MG Tablet PO SCH (15:14)
[2018-03-07] MEDS: Lisinopril 20 MG TABLET PO SCH (15:14)
[2018-03-07] MEDS: Amiodarone Premix 360 MG/200 ML BAG IVC SCH ×2 (15:14→16:41)
[2018-03-07] MEDS: Famotidine 20 MG TABLET PO SCH (15:14)
[2018-03-07] MEDS: Norepinephrine 4 MG in D5% in Water 250 ML IVC SCH (15:15)
[2018-03-07] MEDS: Nitroglycerin 25 MG/250 ML INFUS..BTL IVC SCH (15:15)
[2018-03-07] MEDS: niCARdipine 40 MG/200 ML MLS IVC SCH (15:15)
[2018-03-07] MEDS: Insulin Human Regular 100 UNIT in 0.9 % Sodium Chloride 100 ML IVC SCH (15:15)
[2018-03-07 16:49] LABS: ABG Base Excess -1 mEq/L (-2 to 3); ABG HCO3 26 mEq/L (21-27); ABG Oxygen Saturation 95 % (95-98); ABG PCO2 52 mmHg (35-45); ABG PH 7.31 pH Units (7.32-7.45); ABG PO2 84 mmHg (85-104); ABG TCO2 28 mEq/L (20-26)
[2018-03-07 18:10] LABS: ABG Base Excess -1 mEq/L (-2 to 3); ABG HCO3 25 mEq/L (21-27); ABG Oxygen Saturation 96 % (95-98); ABG PCO2 46 mmHg (35-45); ABG PH 7.35 pH Units (7.32-7.45); ABG PO2 83 mmHg (85-104); ABG TCO2 27 mEq/L (20-26)
[2018-03-07] MEDS: Metoclopramide 10 MG/2 ML VIAL IVP SCH (18:12)
[2018-03-07] MEDS: Ketorolac 15 MG/ML VIAL IVP SCH (18:12)
[2018-03-07 18:50] LABS: ABG Base Excess -1 mEq/L (-2 to 3); ABG HCO3 25 mEq/L (21-27); ABG Oxygen Saturation 96 % (95-98); ABG PCO2 46 mmHg (35-45); ABG PH 7.34 pH Units (7.32-7.45); ABG PO2 87 mmHg (85-104); ABG TCO2 26 mEq/L (20-26)
--- NOTE | 2018-03-07 19:16 | Electrocardiograph Report ---
[place] [address] Test Date: 2018-03-07 Pat Name: Andrea Lance Department: 109 Room: [facility] Gender: M Disintegrator Operator: JAYRO : 1950 Requested By: Tamiko Cramer Order Number: [id number] Reading MD: Yvon Agustin Measurements Intervals [place] Rate: 63 P: 45 SC: 186 QRS: 77 QRSD: 103 T: 59 QT: 444 QTc: 452 Interpretive Statements SINUS RHYTHM Electronically Signed On 03-07-2018 19:14:12 EDT by Yvon Agustin
[2018-03-08] MEDS: Ketorolac 15 MG/ML VIAL IVP SCH ×2 (00:17→06:10)
[2018-03-08] MEDS: Metoclopramide 10 MG/2 ML VIAL IVP SCH ×5 (00:17→23:55)
[2018-03-08] MEDS: Norepinephrine 4 MG in D5% in Water 250 ML IVC SCH (01:16)
[2018-03-08] MEDS: Nitroglycerin 25 MG/250 ML INFUS..BTL IVC SCH ×4 (03:23→23:18)
[2018-03-08] MEDS: Amiodarone Premix 360 MG/200 ML BAG IVC SCH (03:23)
[2018-03-08] MEDS: niCARdipine 40 MG/200 ML MLS IVC SCH ×3 (03:23→20:29)
[2018-03-08 03:25] LABS: Basophils % 0.1 %; Hematocrit 34.7 % (37.5-50.1); Hemoglobin 11.8 g/dL (12.9-16.9); Immature Granulocytes % 0.9 % (0-4); Lymphocytes # 0.5 K/mcL (0.6-4.6); Lymphocytes % 3.6 %; Mean Corpuscular Hemoglobin 33.8 pg (28.0-33.3); Mean Corpuscular Volume 99.4 fL (83.0-100.0); Monocytes # 1.3 K/mcL (0.0-1.3); Monocytes % 9.8 %; Neutrophils # 11.2 K/mcL (1.6-8.9); Platelet Count 105 K/mcL (140-400); Red Blood Count 3.49 M/mcL (4.19-5.50); Red Cell Distribution Width 13.2 % (11.5-14.5); Segmented Neutrophils % 85.6 %
[2018-03-08 03:33] LABS: INR 1.3; Prothrombin Time 14.5 Seconds (9.4-12.1)
[2018-03-08 03:35] LABS: Activated Partial Thrombo Time 30.7 Seconds (26.0-36.0)
[2018-03-08 03:43] LABS: BUN/Creatinine Ratio 26 (6-26); Blood Urea Nitrogen 20 mg/dL (8-23); Calcium 8.2 mg/dL (8.6-10.3); Carbon Dioxide 25 mEq/L (23-29); Chloride 106 mEq/L (98-107); Glucose 132 mg/dL (70-105); Magnesium 2.3 mg/dL (1.6-2.6); Osmolality,Calculated 284 (280-300); Potassium 4.2 mEq/L (3.5-5.1); Sodium 135 mEq/L (136-145); eGFR For African Americans > 60 (> 60); eGFR For Non-African Americans > 60 (> 60)
--- NOTE | 2018-03-08 07:31 | Cardiothoracic Progress Note ---
Date of Encounter: 03/08/18 Time of Encounter: 07:29 - Assessment and plan (1) CAD (coronary artery disease) Current Visit: Yes Status: Acute The patient is covering well from his CABG 3. He remained hemodynamically stable overnight. He is currently extubated and breathing comfortably. The Levophed drip will be planed off later today. The amiodarone drip will continue and he will be switched to oral amiodarone tomorrow. The assessment and plan as outlined above was discussed with the patient and/or family members who expressed understanding and agreement. All questions were answered. Qualifiers: Coronary Disease-Associated Artery/Lesion type: [place] artery [place] vs. transplanted heart: [place] heart Associated angina: with unstable angina Qualified Code(s): I25.110 - Atherosclerotic heart disease of [place] coronary artery with unstable angina pectoris - Subjective Procedure(s) Performed: POD#1 S/P CABG3 Interval history: The patient remained hemodynamic stable overnight. He is extubated and breathing comfortably. He has no complaints. Vital Signs, Last 4 Hours Pulse Resp BP Pulse Ox 03/08/18 07:00 60 16 104/46 97 03/08/18 06:00 66 16 121/53 94 03/08/18 05:00 59 14 107/43 98 03/08/18 04:15 16 99 03/08/18 04:00 60 16 113/46 99 Oxgyen Flow Rate Oxygen Flow Rate (LPM) 4 Clinical Data, last 8 Hours Output, Chest Tube Drainage 10 Amount [Mediastinal #1] Output, Chest Tube Drainage 10 Amount [Mediastinal #1] Output, Chest Tube Drainage 20 Amount [Mediastinal #1] Output, Chest Tube Drainage 10 Amount [Mediastinal #1] Output, Chest Tube Drainage 10 Amount [Mediastinal #1] Output, Chest Tube Drainage 10 Amount [Mediastinal #1] Output, Chest Tube Drainage 10 Amount [Mediastinal #1] Output, Chest Tube Drainage 20 Amount [Mediastinal #1] Output, Chest Tube Drainage 10 Amount [Mediastinal #1] Output, Chest Tube Drainage 10 Amount [Mediastinal #1] Output, Chest Tube Drainage 0 Amount [Mediastinal #2] Output, Chest Tube Drainage 0 Amount [Mediastinal #2] Output, Chest Tube Drainage 0 Amount [Mediastinal #2] Output, Chest Tube Drainage 0 Amount [Mediastinal #2] Output, Chest Tube Drainage 0 Amount [Mediastinal #2] Output, Chest Tube Drainage 0 Amount [Mediastinal #2] Output, Chest Tube Drainage 0 Amount [Mediastinal #2] Output, Chest Tube Drainage 0 Amount [Mediastinal #2] Output, Chest Tube Drainage 0 Amount [Mediastinal #2] Output, Chest Tube Drainage 0 Amount [Mediastinal #2] Weight 03/06/18 03/07/18 03/08/18 23:59 23:59 23:59 Weight 96.706 kg - Physical Examination General: Conversant, No Apparent Distress Neck: No JVD, Normal carotid pulses Cardiac: Reg Rate and Rhythm, Normal S1 and S2, No Murmur Incision: No signs of infection, Dry/intact dressing Sternum: Stable Chest tubes: Minimal drainage, Other (No air leak) Lungs: Normal Breath Sounds, No Wheeze, Rales, Rhonchi Neuro: Alert and responsive, No focal deficits noted Vascular: Normal capillary refill Extremities: No Clubbing, No Cyanosis, No Edema - Labs 03/08/18 03:15 03/08/18 03:15 Lab Results, Last 24 hours 03/07/18 03/07/18 03/07/18 12:10 12:10 12:10 WBC 14.2 H Hgb 11.7 L D Hct 34.3 L Plt Count 103 L INR 1.5 APTT 33.7 Sodium 132 L Potassium 4.0 Chloride 103 Carbon Dioxide 26 BUN 12 Creatinine 0.73 Glucose 170 H Calcium 7.6 L Magnesium 2.8 H 03/08/18 03/08/18 03/08/18 03:15 03:15 03:15 WBC 13.1 H Hgb 11.8 L Hct 34.7 L Plt Count 105 L INR 1.3 APTT 30.7 Sodium 135 L Potassium 4.2 Chloride 106 Carbon Dioxide 25 BUN 20 Creatinine 0.78 Glucose 132 H Calcium 8.2 L Magnesium 2.3 - Imaging Chest Xray: image reviewed (No pneumothorax. Minimal atelectasis/infiltrates.) - VTE Documentation of Mechanical Device: Graduated compression elastic hosiery Consult Discharge Plan - Plan Referrals: Marely Alcaraz DO [Primary Care Provider] -
[2018-03-08] MEDS: Pantoprazole 40 MG VIAL IVP SCH (07:57)
[2018-03-08] MEDS: Furosemide 20 MG/2 ML VIAL IVP SCH ×2 (07:58→16:29)
[2018-03-08] MEDS: 0.9 % Sodium Chloride w KCl 20 MEQ/1,000 ML MLS IVC SCH (07:59)
[2018-03-08] MEDS: Lisinopril 20 MG TABLET PO SCH (07:59)
[2018-03-08] MEDS: Chlorhexidine Rinse 15 ML MOUTHWASH MM SCH ×2 (08:01→20:34)
[2018-03-08] MEDS: Aspirin Enteric Coated 81 MG Tablet PO SCH (08:03)
[2018-03-08] MEDS ORDERED: Levofloxacin 750 MG/150 ML 750 MG/150 ML BAG IVPB SCH (09:00)
[2018-03-08] MEDS ORDERED: *HR* Amiodarone 200 MG TABLET PO SCH (09:00)
[2018-03-08] MEDS: Insulin Human Regular 100 UNIT in 0.9 % Sodium Chloride 100 ML IVC SCH (11:39)
[2018-03-08] MEDS ORDERED: Dextrose Gel 15 GM/37.5 ML TUBE PO PRN ×2 (11:42)
[2018-03-08] MEDS ORDERED: D5% in Water 1,000 ML IVC PRN (11:42)
[2018-03-08] MEDS ORDERED: *HR* Dextrose 50 % in Water (Syg) 50 ML SYRINGE IVP PRN (11:42)
[2018-03-08] MEDS: *HR* OxyCODONE/APAP 5/325 TABLET PO PRN ×2 (16:28→22:09)
[2018-03-08] MEDS ORDERED: Insulin LISPRO 300 UNITS/3 ML VIAL SQ SCH ×2 (16:30→21:00)
[2018-03-09] MEDS: niCARdipine 40 MG/200 ML MLS IVC SCH ×3 (02:28→12:52)
[2018-03-09] MEDS: 0.9 % Sodium Chloride w KCl 20 MEQ/1,000 ML MLS IVC SCH (03:15)
[2018-03-09 03:37] LABS: Basophils % 0.1 %; Eosinophils % 0.3 %; Hematocrit 32.8 % (37.5-50.1); Hemoglobin 11.3 g/dL (12.9-16.9); Immature Granulocytes % 0.8 % (0-4); Immature Platelets 5.8 % (1.1-6.1); Lymphocytes # 0.8 K/mcL (0.6-4.6); Lymphocytes % 9.4 %; Mean Corpuscular HGB Conc 34.5 g/dL (31.6-35.5); Mean Corpuscular Hemoglobin 34.5 pg (28.0-33.3); Mean Platelet Volume 10.4 fL (9.4-12.4); Monocytes # 0.8 K/mcL (0.0-1.3); Monocytes % 9.6 %; Neutrophils # 6.9 K/mcL (1.6-8.9); Platelet Count 118 K/mcL (140-400); Red Blood Count 3.28 M/mcL (4.19-5.50); Red Cell Distribution Width 13.2 % (11.5-14.5); Segmented Neutrophils % 79.8 %
[2018-03-09 04:02] LABS: BUN/Creatinine Ratio 34 (6-26); Blood Urea Nitrogen 27 mg/dL (8-23); Calcium 8.5 mg/dL (8.6-10.3); Carbon Dioxide 23 mEq/L (23-29); Chloride 108 mEq/L (98-107); Glucose 111 mg/dL (70-105); Osmolality,Calculated 290 (280-300); Potassium 4.1 mEq/L (3.5-5.1); Sodium 137 mEq/L (136-145); eGFR For African Americans > 60 (> 60); eGFR For Non-African Americans > 60 (> 60)
[2018-03-09] MEDS: Metoclopramide 10 MG/2 ML VIAL IVP SCH ×3 (05:38→17:25)
--- NOTE | 2018-03-09 06:45 | Cardiothoracic Progress Note ---
Date of Encounter: 03/09/18 Time of Encounter: 06:43 - Assessment and plan (1) CAD (coronary artery disease) Current Visit: Yes Status: Acute The patient is covering well from his CABG 3. He remained hemodynamically stable overnight. The chest tubes, Issa catheter, and pacing wires were removed. The patient's Pletal will be resumed this morning for his right lower extremity stents. He will be transferred to the stepdown unit when a bed is available. The assessment and plan as outlined above was discussed with the patient and/or family members who expressed understanding and agreement. All questions were answered. Qualifiers: Coronary Disease-Associated Artery/Lesion type: [place] artery [place] vs. transplanted heart: [place] heart Associated angina: with unstable angina Qualified Code(s): I25.110 - Atherosclerotic heart disease of [place] coronary artery with unstable angina pectoris - Subjective Procedure(s) Performed: POD#2 S/P CABG3 Interval history: The patient remained hemodynamic stable overnight. He has no complaints. Vital Signs, Last 4 Hours Temp Pulse Resp BP Pulse Ox 03/09/18 06:00 75 14 131/54 95 03/09/18 04:56 98.3 F 03/09/18 04:53 72 14 118/48 95 03/09/18 04:00 71 14 116/49 95 03/09/18 03:00 71 12 107/49 94 Oxgyen Flow Rate Oxygen Flow Rate (LPM) 2 Clinical Data, last 8 Hours Output, Chest Tube Drainage 20 Amount [Mediastinal #1] Output, Chest Tube Drainage 10 Amount [Mediastinal #1] Weight 03/07/18 03/08/18 03/09/18 23:59 23:59 23:59 Weight 96.706 kg 104.4 kg - Physical Examination General: Conversant, No Apparent Distress Neck: No JVD, Normal carotid pulses Cardiac: Reg Rate and Rhythm, Normal S1 and S2, No Murmur Incision: No signs of infection, Dry/intact dressing Sternum: Stable Chest tubes: Minimal drainage, Other (No air leak) Pacing Wires: In place Lungs: Normal Breath Sounds, No Wheeze, Rales, Rhonchi Neuro: Alert and responsive, No focal deficits noted Vascular: Normal capillary refill Extremities: No Clubbing, No Cyanosis, No Edema - Labs 03/09/18 03:15 03/09/18 03:15 Lab Results, Last 24 hours 03/09/18 03/09/18 03:15 03:15 WBC 8.6 Hgb 11.3 L Hct 32.8 L Plt Count 118 L Sodium 137 Potassium 4.1 Chloride 108 H Carbon Dioxide 23 BUN 27 H Creatinine 0.79 Glucose 111 H Calcium 8.5 L - Imaging Chest Xray: image reviewed (No pneumothorax. Minimal atelectasis/infiltrates.) - VTE Documentation of Mechanical Device: Graduated compression elastic hosiery Consult Discharge Plan - Plan Referrals: Marely Alcaraz DO [Primary Care Provider] -
[2018-03-09] MEDS ORDERED: Prochlorperazine 10 MG/2 ML VIAL IVP PRN (07:02)
[2018-03-09] MEDS ORDERED: Dextrose Gel 15 GM/37.5 ML TUBE PO PRN ×2 (07:02)
[2018-03-09] MEDS ORDERED: Naloxone 0.4 MG/ML INJ IVP PRN (07:02)
[2018-03-09] MEDS ORDERED: D5% in Water 1,000 ML IVC PRN (07:02)
[2018-03-09] MEDS ORDERED: Acetaminophen 325 MG TABLET PO PRN (07:02)
[2018-03-09] MEDS ORDERED: Insulin Regular, Human 100 UNIT/ML IV PRN (07:02)
[2018-03-09] MEDS ORDERED: *HR* Dextrose 50 % in Water (Syg) 50 ML SYRINGE IVP PRN (07:02)
[2018-03-09] MEDS ORDERED: Nitroglycerin 0.4 MG TAB.SUBL SL PRN (07:02)
[2018-03-09] MEDS: Chlorhexidine Rinse 15 ML MOUTHWASH MM SCH ×2 (07:54→21:04)
[2018-03-09] MEDS: Furosemide 20 MG/2 ML VIAL IVP SCH ×2 (07:54→17:25)
[2018-03-09] MEDS: Aspirin Enteric Coated 81 MG Tablet PO SCH (07:55)
[2018-03-09] MEDS: Insulin LISPRO 300 UNITS/3 ML VIAL SQ SCH ×4 (07:56→21:04)
[2018-03-09] MEDS: *HR* Heparin 5,000 UNIT/ML VIAL SQ SCH ×2 (07:57→17:27)
[2018-03-09] MEDS ORDERED: Levofloxacin 750 MG/150 ML 750 MG/150 ML BAG IVPB SCH (09:00)
[2018-03-09] MEDS ORDERED: *HR* Amiodarone 200 MG TABLET PO SCH (09:00)
[2018-03-09] MEDS: *HR* OxyCODONE/APAP 5/325 TABLET PO PRN (09:40)
[2018-03-09] MEDS ORDERED: Amiodarone Premix 360 MG/200 ML BAG IVC ONE ×2 (17:09→17:22)
[2018-03-09] MEDS ORDERED: Amiodarone Premix 150 MG/100 ML BAG IVPB ONE ×2 (17:09→17:21)
[2018-03-10] MEDS: Metoclopramide 10 MG/2 ML VIAL IVP SCH ×4 (00:02→16:59)
[2018-03-10] MEDS: Amiodarone Premix 360 MG/200 ML BAG IVC SCH ×2 (00:02→11:27)
[2018-03-10 05:57] LABS: Basophils % 0.1 %; Eosinophils # 0.1 K/mcL (0.0-0.6); Eosinophils % 1.2 %; Hematocrit 33.1 % (37.5-50.1); Hemoglobin 11.2 g/dL (12.9-16.9); Immature Granulocytes % 0.7 % (0-4); Lymphocytes # 0.8 K/mcL (0.6-4.6); Lymphocytes % 10.9 %; Mean Corpuscular HGB Conc 33.8 g/dL (31.6-35.5); Mean Corpuscular Hemoglobin 33.9 pg (28.0-33.3); Mean Corpuscular Volume 100.3 fL (83.0-100.0); Mean Platelet Volume 9.7 fL (9.4-12.4); Monocytes # 0.7 K/mcL (0.0-1.3); Monocytes % 9.4 %; Neutrophils # 5.8 K/mcL (1.6-8.9); Platelet Count 141 K/mcL (140-400); Red Cell Distribution Width 13.2 % (11.5-14.5); Segmented Neutrophils % 77.7 %
[2018-03-10 06:14] LABS: BUN/Creatinine Ratio 33 (6-26); Blood Urea Nitrogen 27 mg/dL (8-23); Calcium 8.9 mg/dL (8.6-10.3); Carbon Dioxide 27 mEq/L (23-29); Chloride 107 mEq/L (98-107); Glucose 116 mg/dL (70-105); Osmolality,Calculated 294 (280-300); Potassium 3.7 mEq/L (3.5-5.1); Sodium 139 mEq/L (136-145); eGFR For African Americans > 60 (> 60); eGFR For Non-African Americans > 60 (> 60)
--- NOTE | 2018-03-10 08:44 | Cardiothoracic Progress Note ---
Date of Encounter: 03/10/18 Time of Encounter: 08:43 - Assessment and plan (1) CAD (coronary artery disease) Current Visit: Yes Status: Acute The patient is covering well from his CABG 3. He remained hemodynamically stable overnight. He remains in atrial fibrillation, but with a controlled rate. Amiodarone drip will be continued. He will continue ambulating in the hallways today. The assessment and plan as outlined above was discussed with the patient and/or family members who expressed understanding and agreement. All questions were answered. Qualifiers: Coronary Disease-Associated Artery/Lesion type: [place] artery [place] vs. transplanted heart: [place] heart Associated angina: with unstable angina Qualified Code(s): I25.110 - Atherosclerotic heart disease of [place] coronary artery with unstable angina pectoris - Subjective Procedure(s) Performed: POD#3 S/P CABG3 Interval history: The patient remained hemodynamic stable overnight. He has no complaints. His heart rhythm deteriorated to atrial fibrillation with rapid ventricular response last evening. He is currently on an amiodarone drip with a controlled rate. Vital Signs, Last 4 Hours Temp Pulse Resp BP Pulse Ox 03/10/18 07:41 18 93 03/10/18 07:29 98.5 F 119 18 125/77 93 03/10/18 05:00 115 106/75 Oxgyen Flow Rate Oxygen Flow Rate (LPM) 2 Weight 03/08/18 03/09/18 03/10/18 23:59 23:59 23:59 Weight 104.4 kg 102.1 kg - Physical Examination General: Conversant, No Apparent Distress Neck: No JVD, Normal carotid pulses Cardiac: Normal S1 and S2, No Murmur, Other (Irregular rate and rhythm (atrial fibrillation)) Incision: No signs of infection, Dry/intact dressing Sternum: Stable Pacing Wires: In place Lungs: Normal Breath Sounds, No Wheeze, Rales, Rhonchi Neuro: Alert and responsive, No focal deficits noted Vascular: Normal capillary refill Extremities: No Clubbing, No Cyanosis, No Edema - Labs 03/10/18 05:47 03/10/18 05:47 Lab Results, Last 24 hours 03/10/18 03/10/18 05:47 05:47 WBC 7.4 Hgb 11.2 L Hct 33.1 L Plt Count 141 Sodium 139 Potassium 3.7 Chloride 107 Carbon Dioxide 27 BUN 27 H Creatinine 0.83 Glucose 116 H Calcium 8.9 - VTE Documentation of Mechanical Device: Graduated compression elastic hosiery Consult Discharge Plan - Plan Referrals: Marely Alcaraz DO [Primary Care Provider] - Desirae Cramer MD [Partnered Physician] -
[2018-03-10] MEDS: Chlorhexidine Rinse 15 ML MOUTHWASH MM SCH ×2 (09:03→21:52)
[2018-03-10] MEDS: Aspirin Enteric Coated 81 MG Tablet PO SCH (09:03)
[2018-03-10] MEDS: Furosemide 20 MG/2 ML VIAL IVP SCH ×2 (09:03→16:58)
[2018-03-10] MEDS: Insulin LISPRO 300 UNITS/3 ML VIAL SQ SCH ×4 (09:04→21:59)
[2018-03-10] MEDS: *HR* Heparin 5,000 UNIT/ML VIAL SQ SCH ×2 (12:52→16:58)
[2018-03-10] MEDS: *HR* OxyCODONE/APAP 5/325 TABLET PO PRN (21:51)
[2018-03-11] MEDS: Amiodarone Premix 360 MG/200 ML BAG IVC SCH (00:05)
[2018-03-11] MEDS: *HR* Heparin 5,000 UNIT/ML VIAL SQ SCH ×2 (04:48→18:05)
--- NOTE | 2018-03-11 07:43 | Cardiothoracic Progress Note ---
Date of Encounter: 03/11/18 Time of Encounter: 07:41 - Assessment and plan (1) CAD (coronary artery disease) Current Visit: Yes Status: Acute The patient is covering well from his CABG 3. He remained hemodynamically stable overnight. He converted to normal sinus rhythm yesterday afternoon on the amiodarone drip. He started on oral amiodarone today. He will continue ambulating in the hallways today. The assessment and plan as outlined above was discussed with the patient and/or family members who expressed understanding and agreement. All questions were answered. Qualifiers: Coronary Disease-Associated Artery/Lesion type: [place] artery [place] vs. transplanted heart: [place] heart Associated angina: with unstable angina Qualified Code(s): I25.110 - Atherosclerotic heart disease of [place] coronary artery with unstable angina pectoris - Subjective Procedure(s) Performed: POD#4 S/P CABG3 Interval history: The patient remained hemodynamic stable overnight. He converted to normal sinus rhythm yesterday afternoon on the amiodarone drip. He has no complaints. Vital Signs, Last 4 Hours Temp Pulse Resp BP Pulse Ox 03/11/18 07:39 97.9 F 81 18 110/64 94 03/11/18 04:41 16 96 03/11/18 03:46 97.8 F 73 17 107/64 96 Oxgyen Flow Rate Oxygen Flow Rate (LPM) 2 Weight 03/09/18 03/10/18 03/11/18 23:59 23:59 23:59 Weight 104.4 kg 102.1 kg 100.2 kg - Physical Examination General: Conversant, No Apparent Distress Neck: No JVD, Normal carotid pulses Incision: No signs of infection, Dry/intact dressing Sternum: Stable Pacing Wires: In place Lungs: Normal Breath Sounds, No Wheeze, Rales, Rhonchi Neuro: Alert and responsive, No focal deficits noted Vascular: Normal capillary refill Extremities: No Clubbing, No Cyanosis, No Edema - Labs 03/10/18 05:47 03/10/18 05:47 - VTE Documentation of Mechanical Device: Intermittent pneumatic compression device Consult Discharge Plan - Plan Referrals: Marely Alcaraz DO [Primary Care Provider] - 03/16/18 9:30 am Desirae Cramer MD [Partnered Physician] -
[2018-03-11] MEDS: Chlorhexidine Rinse 15 ML MOUTHWASH MM SCH ×2 (07:49→20:12)
[2018-03-11] MEDS: Aspirin Enteric Coated 81 MG Tablet PO SCH (07:49)
[2018-03-11] MEDS: Insulin LISPRO 300 UNITS/3 ML VIAL SQ SCH (08:20)
[2018-03-11] MEDS: *HR* OxyCODONE/APAP 5/325 TABLET PO PRN (08:58)
[2018-03-11] MEDS: *HR* Amiodarone 200 MG TABLET PO SCH (08:58)
--- NOTE | 2018-03-11 09:05 | Urology Procedure Note ---
Date of Encounter: 03/07/18 Time of Encounter: 08:00 Procedures:Urology - Catheter Insertion (Urinary) Prophylactic antibiotics given: Yes Bladder Scan/Ultrasound used before catheterization: No Estimated amount of urin (mLs): 100 Preparation: Povidone-Iodine Type of catheter inserted: 2 way Catheter [place] Size: 18 (temperature regulating cath) Topical anesthesia used: Yes (urojet) Results: successfully catheterized-immediate flow Urine Appearance: Clear Patient tolerated procedure: well Additional comments: I was called to the heart room bc team unable to place cath. I attempted a 14 coude but it would not pass. I then placed a zipwire and was able to pass the temperature regulating cath over the zipwire. return of clear urine. case turned over to heart team. no followup needed. cath can be removed at discretion of primary service.
--- NOTE | 2018-03-11 17:40 | Electrocardiograph Report ---
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
--- NOTE | 2018-03-11 17:56 | Electrocardiograph Report ---
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
[2018-03-12] MEDS: *HR* Heparin 5,000 UNIT/ML VIAL SQ SCH (05:07)
--- NOTE | 2018-03-12 07:24 | Discharge Summary ---
Date of Encounter: 03/12/18 Time of Encounter: 07:22 - Discharge Diagnosis (1) CAD (coronary artery disease) Priority: Primary Status: Acute Qualifiers: Coronary Disease-Associated Artery/Lesion type: [place] artery [place] vs. transplanted heart: hopi heart Associated angina: with unstable angina Qualified Code(s): I25.110 - Atherosclerotic heart disease of [place]i coronary artery with unstable angina pectoris - Hospital Course Hospital course: Mr. Lance is a 67 year old hypertensive man with hypercholesterolemia and known CAD and known peripheral arterial disease. The patient's cardiac history dates back to 1998 when he suffered a myocardial infarction. The patient was transferred to the [facility] and underwent percutaneous catheter intervention and stent placement 2. The patient has had annual follow-ups with his repairer handtools and has had no difficulty until last week. At that time the patient would have vague substernal chest discomfort, but denied any shortness of breath, dyspnea exertion, diaphoresis, nausea, vomiting, lightheadedness, or syncope. Yesterday; however, the patient had sudden onset of left precordial chest pain, diaphoresis, and palpitations. The symptoms lasted for approximately 3 hours and he eventually sought treatment at [facility] emergency department at the insistence of his . The patient had mildly elevated troponin I levels and was admitted for further cardiac workup given his known CAD, presenting symptoms, and cardiac risk profile. The patient underwent a transthoracic echocardiogram this afternoon and was found to have an LVEF 60% with normal left ventricular size and function. There were no valvular abnormalities noted. Subsequent cardiac catheterization revealed severe 3 vessel CAD and an LVEF 65%. In particular the patient has a 90% mid LAD lesion, a 60% proximal LCx lesion, and a subtotally occluded proximal RCA which fills distally via [id number] collaterals. He has been recommended for CABG. He was on blood cell preoperatively for his right lower extremity stents in this was stopped for 3 days prior to CABG. The patient underwent CABG 3 on 03/07/2018. His postoperative course was uncomplicated; however, he did have transient atrial fibrillation which converted to normal sinus rhythm with amiodarone. The patient was ambulating without complaints of substernal chest pain or shortness of breath. He was discharged home on POD #5. He was not discharged home with amiodarone since he was a little for his peripheral arterial disease. These 2 medications in combination can prolong the QT interval. He was discharged home with metoprolol for rate control. - Time Spent with Patient Total time spent providing and/or coordinating discharge services: - Discharge Medications Prescriptions: OxyCODONE/APAP 5/325 [Percocet 5/325 MG] 1 each PO Q4HR PRN 7 Days #42 tablet PRN Reason: Severe Pain Metoprolol [Lopressor] 25 mg PO BID #60 tablet Home Medications: Aspirin Enteric Coated [Aspirin EC] 81 mg PO DAILY 03/03/18 [History] Atorvastatin Calcium [Lipitor] 80 mg PO HS 03/03/18 [History] Cilostazol [Pletal] 100 mg PO BID 03/03/18 [History] Ezetimibe 10 mg PO DAILY 03/03/18 [History] Lisinopril [Zestril] 20 mg PO DAILY 03/03/18 [History] Ranitidine HCl [Acid Senior Database Administrator] 150 mg PO DAILY 03/03/18 [History] Metoprolol [Lopressor] 25 mg PO BID #60 tablet 03/12/18 [Rx] OxyCODONE/APAP 5/325 [Percocet 5/325 MG] 1 each PO Q4HR PRN 7 Days #42 tablet [Rx] Allergies/Adverse Reactions: 3 Allergy/AdvReac Type Severity Reaction Status Date / Time clindamycin Allergy Hives Verified 03/03/18 22:04 clopidogrel [From Plavix] Allergy Hives Verified 03/03/18 22:04 Penicillins [PCN] Allergy Rash Verified 03/03/18 22:04 Date of admission: 03/05/18 15:00 Primary care physician: Ashley Farah Consults: 03/07/18 12:07 Consult to Cardiac Rehabilitation-Phase1 [CONS] Routine Comment: Reason for Consult: Post open heart Call Completed: Yes 03/11/18 12:57 Consult to Nutrition [CONS] Routine Comment: Patient request for gout management. Consulting Provider: NUTRITION Reason for Dietary Consult: Other Procedure(s) Performed: 1. Cardiac catheterization performed 03/04/2018. 2. CABG 3 (TONY to LAD, SVG to OM1, SVG to PDA) performed 03/07/2018. 2. Endoscopic vein harvesting, greater saphenous vein from right lower extremity performed 03/07/2018. Discharging clinician: Desirae Cramer Anticipated date of discharge: 03/12/18 Physical Examination Vital Signs, Last 4 Hours Temp Pulse Resp BP Pulse Ox 03/12/18 04:45 89 03/12/18 04:39 98.3 F 89 17 101/64 94 03/12/18 04:34 19 92 General: Conversant, No Apparent Distress HEENT: Atraumatic, Normocephaly, Trachea midline Neck: No JVD, Normal carotid pulses Cardiac: Reg Rate and Rhythm, Normal S1 and S2, No Murmur Lungs: Normal Breath Sounds, No Wheeze, Rales, Rhonchi Neuro: Alert and responsive, No focal deficits noted, Motor nerves intact, Sensory nerves intact Vascular: Normal capillary refill Abdomen: Soft, Non-tender Musculoskeletal: No Chest Wall Tenderness Extremities: No Clubbing, No Cyanosis, No Edema - Patient Status Disposition: Home, Self-Care Condition: Good Functional capacity at discharge: independent ambulation Overall status at discharge: patient is progressing back to baseline - Discharge Instructions Follow Up With: Marely Alcaraz DO [Primary Care Provider] - 03/16/18 9:30 am Subhash Hobbs DO [Partnered Physician] - 04/08/18 11:30 am Desirae Cramer MD [Partnered Physician] - 03/31/18 2:00 pm Forms: ED Satisfaction Letter - Diet and Activity Activity: sternal precautions, no driving for four weeks, no lifting greater than 10 pounds for eight weeks Diet: low fat, low cholesterol [facility] Aspirin Cont/Prescribed at DC: Yes Beta Fadia Cont/Prescribed at DC: Yes Statin Cont/Prescribed at DC: Yes DC/ARB Cont/Prescribed at DC: Yes - VTE Documentation of Mechanical Device: Graduated compression elastic hosiery
[2018-03-12 08:28] VITALS: BP 116/75
[2018-03-12] MEDS: Chlorhexidine Rinse 15 ML MOUTHWASH MM SCH (08:34)
[2018-03-12] MEDS: Aspirin Enteric Coated 81 MG Tablet PO SCH (08:34)
[2018-03-12] MEDS: *HR* Amiodarone 200 MG TABLET PO SCH (08:35)
== END 2018-03-12 10:50 | disposition home or self-care (01) | DRG 234 ==
LOC: EMEROO 20:48 → 2ANU 20:48 → SUATTDRO 22:58 → 2ANU 23:36 → ICNU 03-07 09:22 → 2NNU 03-09 18:14
PROVIDERS: ADMIT Internal Medicine; ATTEND Student in an Organized Health Care Education/Training Program